=== PATIENT | female | born 1940 | race Caucasian/White ===

== ENCOUNTER → 2017-10-15 | Outpatient (CLI) | payer MEDICARE ==
[~2017-10-15] MED LIST: AMLO10 PO; ASCO500 PO; ASPI325EC PO; ASPI81EC PO; ATOR20 PO; Adult Low Dose81 MG PO; BENA20 PO; BUPR150ER PO; CALCAVITDA PO; CLON.2 PO; Dyazide 37.5-21 EACH PO; FLUO20 PO; FURO40 PO; GEMF600 PO; HYDCHL25 PO; LABE200 PO; LEVO750 PO; LEVSOD125 PO; METO25ER PO; NITR.4SL SL; POTA10T PO; POTCHL20ER PO; Prinivil10 MG PO; Prozac20 MG PO; VITAMIN D3 PO; XARELTO15 MG PO
[2017-10-15 11:13] LABS: Anion Gap 9 mmol/L (6-16); Blood Urea Nitrogen 15 mg/dL (8-24); Bun/Creatinine Ratio 18.3 (12.0-20.0); CO2, Blood 28 mmol/L (21-32); Calcium, Blood 9.6 mg/dL (8.5-10.1); Chloride, Blood 104 mmol/L (98-108); Creatinine, Blood 0.82 mg/dL (0.40-1.00); Glomerular Filtration Rate >60 (60-); Glucose, Blood 102 mg/dL (70-99); Potassium, Blood 3.4 mmol/L (3.5-5.5); Sodium, Blood 141 mmol/L (136-145)
== END ==
LOC: LAB 10:39
PROVIDERS: Internal Medicine
DX: I10 Essential (primary) hypertension (principal)
CPT/HCPCS: 80048

== ENCOUNTER 2018-02-15 15:18 | Inpatient (IN) | payer MEDICARE ==
[~2018-02-15] VITALS: Ht 162.6 cm; Wt 66.6 kg
[~2018-02-15 15:18] MED LIST changes: -CLON.2 PO; -Dyazide 37.5-21 EACH PO; -FURO40 PO; -LABE200 PO; -LEVO750 PO; -XARELTO15 MG PO
[2018-02-15 16:14] LABS: BASOPHILS ABSOLUTE AUTO 0.06 K/mm3 (0.00-0.23); BASOPHILS PERCENT AUTO 0 % (0-2); EOSINOPHILS ABSOLUTE AUTO 0.01 K/mm3 (0.00-0.68); EOSINOPHILS PERCENT AUTO 0 % (0-6); Hematocrit 48.2 % (33.0-51.0); Hemoglobin 16.6 g/dL (11.5-16.0); IMMATURE GRAN ABSOLUTE AUTO 0.07 K/mm3 (0.00-0.10); IMMATURE GRAN PERCENT AUTO 0 % (0-1); LYMPHOCYTES ABSOLUTE AUTO 1.79 K/mm3 (0.84-5.20); LYMPHOCYTES PERCENT AUTO 11 % (21-46); MONOCYTES PERCENT AUTO 4 % (4-13); Mean Corpuscular HGB 31.1 pg (26.0-34.0); Mean Corpuscular HGB Conc 34.4 g/dL (31.5-36.5); Mean Corpuscular Volume 90 fL (80-100); Mean Platelet Volume 11.6 fL (9.1-12.4); NEUTROPHILS ABSOLUTE AUTO 13.45 K/mm3 (1.96-9.15); NEUTROPHILS PERCENT AUTO 84 % (41-73); Platelet Count 310 K/mm3 (150-400); RDW Coefficient Variation 13.7 % (11.7-14.2); RDW Standard Deviation 45.8 fL (35.1-46.3); Red Blood Cell Count 5.34 M/mm3 (3.80-5.20); White Blood Cell Count 15.98 K/mm3 (4.00-11.30)
[2018-02-15 16:36] LABS: Albumin, Blood 4.7 g/dL (3.4-5.0); Albumin/Globulin Ratio 1.4 (0.8-1.8); Bilirubin, Total 0.6 mg/dL (0.1-1.0); Bun/Creatinine Ratio 15.1 (12.0-20.0); Calcium, Blood 11.9 mg/dL (8.5-10.1); Creatinine, Blood 1.26 mg/dL (0.40-1.00); Globulin, Blood 3.3 g/dL (2.2-4.0); Potassium, Blood 3.4 mmol/L (3.5-5.5); Troponin I 0.329 ng/mL (0.000-0.040)
[2018-02-15] MEDS ORDERED: GEMF600 PO (16:39)
[2018-02-15] MEDS ORDERED: CLON.2 PO (16:40)
[2018-02-15] MEDS ORDERED: Dyazide 37.5-21 EACH PO (16:40)
[2018-02-15 17:30] LABS: Free Thyroxine 1.57 ng/dL (0.70-1.60)
[2018-02-15 17:32] LABS: Thyroid Stimulating Hormone 1.81 uIU/mL (0.360-4.800); Triiodothyronine, Free 2.44 pg/mL (2.18-3.98)
[2018-02-15 21:41] LABS: Source, Urine Clean Catch
[2018-02-15 21:46] LABS: Bilirubin, Urine Neg (Neg); Blood, Urine 1+ (Neg); Glucose Qualitative, Urine Neg (Neg); Ketones, Urine Neg (Neg); Leukocyte Esterase, Urine 2+ (Neg); Nitrite, Urine Neg (Neg); Protein, Urine 2+ (Neg); Urobilinogen, Urine NORM (Normal)
[2018-02-15 21:48] LABS: Appearance, Urine Clear (Clear); Color, Urine Yellow (P-Yellow)
[2018-02-15 21:53] LABS: Bacteria Mod /hpf; Red Blood Cells, Urine 0-2 /hpf (0-2); Squamous Epithelial Cells Mod /hpf (Few)
[2018-02-16 00:42] LABS: BASOPHILS ABSOLUTE AUTO 0.02 K/mm3 (0.00-0.23); BASOPHILS PERCENT AUTO 0 % (0-2); EOSINOPHILS PERCENT AUTO 0 % (0-6); Hematocrit 41.1 % (33.0-51.0); IMMATURE GRAN ABSOLUTE AUTO 0.05 K/mm3 (0.00-0.10); IMMATURE GRAN PERCENT AUTO 0 % (0-1); LYMPHOCYTES PERCENT AUTO 14 % (21-46); MONOCYTES ABSOLUTE AUTO 0.74 K/mm3 (0.16-1.47); MONOCYTES PERCENT AUTO 6 % (4-13); Mean Corpuscular HGB Conc 34.1 g/dL (31.5-36.5); Mean Corpuscular Volume 91 fL (80-100); Mean Platelet Volume 10.8 fL (9.1-12.4); NEUTROPHILS ABSOLUTE AUTO 9.97 K/mm3 (1.96-9.15); NEUTROPHILS PERCENT AUTO 80 % (41-73); Platelet Count 259 K/mm3 (150-400); RDW Coefficient Variation 13.9 % (11.7-14.2); RDW Standard Deviation 47.3 fL (35.1-46.3); Red Blood Cell Count 4.51 M/mm3 (3.80-5.20); White Blood Cell Count 12.48 K/mm3 (4.00-11.30)
[2018-02-16 00:58] LABS: Bun/Creatinine Ratio 19.8 (12.0-20.0); Calcium, Blood 10.6 mg/dL (8.5-10.1); Creatinine, Blood 1.11 mg/dL (0.40-1.00); Potassium, Blood 3.4 mmol/L (3.5-5.5)
[2018-02-17 04:46] LABS: BASOPHILS ABSOLUTE AUTO 0.03 K/mm3 (0.00-0.23); BASOPHILS PERCENT AUTO 1 % (0-2); EOSINOPHILS ABSOLUTE AUTO 0.13 K/mm3 (0.00-0.68); EOSINOPHILS PERCENT AUTO 2 % (0-6); Hematocrit 32.4 % (33.0-51.0); Hemoglobin 10.7 g/dL (11.5-16.0); IMMATURE GRAN ABSOLUTE AUTO 0.02 K/mm3 (0.00-0.10); IMMATURE GRAN PERCENT AUTO 0 % (0-1); LYMPHOCYTES ABSOLUTE AUTO 2.62 K/mm3 (0.84-5.20); LYMPHOCYTES PERCENT AUTO 40 % (21-46); MONOCYTES ABSOLUTE AUTO 0.62 K/mm3 (0.16-1.47); MONOCYTES PERCENT AUTO 9 % (4-13); Mean Corpuscular HGB 30.6 pg (26.0-34.0); Mean Corpuscular Volume 93 fL (80-100); Mean Platelet Volume 11.3 fL (9.1-12.4); NEUTROPHILS ABSOLUTE AUTO 3.22 K/mm3 (1.96-9.15); NEUTROPHILS PERCENT AUTO 48 % (41-73); Platelet Count 199 K/mm3 (150-400); RDW Coefficient Variation 14.1 % (11.7-14.2); RDW Standard Deviation 47.9 fL (35.1-46.3); White Blood Cell Count 6.64 K/mm3 (4.00-11.30)
[2018-02-17 05:05] LABS: Anion Gap 10 mmol/L (6-16); Blood Urea Nitrogen 23 mg/dL (8-24); CO2, Blood 23 mmol/L (21-32); Calcium, Blood 9.1 mg/dL (8.5-10.1); Chloride, Blood 111 mmol/L (98-108); Creatinine, Blood 1.15 mg/dL (0.40-1.00); Glomerular Filtration Rate 49 (60-); Glucose, Blood 100 mg/dL (70-99); Potassium, Blood 3.6 mmol/L (3.5-5.5); Sodium, Blood 144 mmol/L (136-145)
[2018-02-18 05:59] LABS: Albumin, Blood 3.2 g/dL (3.4-5.0); Anion Gap 9 mmol/L (6-16); Blood Urea Nitrogen 17 mg/dL (8-24); Bun/Creatinine Ratio 19.7 (12.0-20.0); CO2, Blood 25 mmol/L (21-32); Calcium, Blood 9.4 mg/dL (8.5-10.1); Chloride, Blood 109 mmol/L (98-108); Creatinine, Blood 0.86 mg/dL (0.40-1.00); Glomerular Filtration Rate >60 (60-); Glucose, Blood 100 mg/dL (70-99); Phosphorus, Blood 2.9 mg/dL (2.5-4.9); Sodium, Blood 143 mmol/L (136-145)
[2018-02-18] MEDS ORDERED: FURO40 PO (12:25)
[2018-02-18] MEDS ORDERED: LABE200 PO (12:27)
[2018-02-18] MEDS ORDERED: LEVO750 PO (12:29)
[2018-02-18] MEDS ORDERED: XARELTO15 MG PO (12:29)
== END 2018-02-18 13:11 | disposition home or self-care (01) | DRG 872 ==
LOC: DELPENDDIS → ER 15:18 → MEDS 15:19 → ENPENDDIS 02-16 00:43 → MEDS 02-16 12:47 → ENPENDDIS 02-18 11:28 → MEDS 02-18 13:11
PROVIDERS: Emergency Medicine; Family Medicine
DX: A41.9 Sepsis, unspecified organism (principal); I48.92 Unspecified atrial flutter; N17.9 Acute kidney failure, unspecified; I24.8 Other forms of acute ischemic heart disease; E86.0 Dehydration; I48.0 Paroxysmal atrial fibrillation; R55 Syncope and collapse; I65.29 Occlusion and stenosis of unspecified carotid artery; E83.52 Hypercalcemia; R65.20 Severe sepsis without septic shock; J20.9 Acute bronchitis, unspecified; I10 Essential (primary) hypertension; E89.0 Postprocedural hypothyroidism; G89.29 Other chronic pain; M54.5 Low back pain; F17.210 Nicotine dependence, cigarettes, uncomplicated; E87.6 Hypokalemia; R79.89 Other specified abnormal findings of blood chemistry; D72.829 Elevated white blood cell count, unspecified; R00.0 Tachycardia, unspecified; T46.5X5A Adverse effect of other antihypertensive drugs, initial encounter; Z79.82 Long term (current) use of aspirin; Z79.899 Other long term (current) drug therapy
CPT/HCPCS: 36415; 71046; 71260; 80048; 80053; 80069; 81001; 82306; 83605; 83970; 84439; 84443; 84481; 84484; 85025; 85379; 87086; 93005; 93010; 93306; 93880; 96361; 96365; 96374; 96375; 99285; G0378; J1956; J2405; J3480; J7030; Q9967

== ENCOUNTER → 2019-03-04 | Outpatient (CLI) | payer MEDICARE ==
[~2019-03-04] MED LIST changes: +ALBU90OI INH; +Azor 10-20 MG1 EACH; +Bumetanide1 MG PO; +Bumetanide2 MG PO; +CLON.2 PO; +Calcitonin-Sal3.7 ML; +Dyazide 37.5-21 EACH PO; +ELIQUIS2.5 MG PO; +FURO40 PO; +LABE200 PO; +LEVO750 PO; +LISI20 PO; +LOSA50 PO; +Norvasc10 MG PO; +PANT20 PO; +SPIRIVA RESPIMAT4 GM INH; +VOLTAREN100 GM TOP; +Vitamin D2000 UNIT PO; +XARELTO15 MG PO; +XARELTO20 MG PO
== END | disposition home or self-care (01) ==
LOC: LAB SHORT 16:10 → LAB 16:10
DX: L08.9 Local infection of the skin and subcutaneous tissue, unspecified (principal)
CPT/HCPCS: 87070; 87075; 87077; 87147; 87186; 87205

== ENCOUNTER 2019-04-30 13:50 | Inpatient (IN) | payer MEDICARE ==
[~2019-04-30] VITALS: Ht 157.5 cm; Wt 80.9 kg
[~2019-04-30 13:50] MED LIST changes: -ALBU90OI INH; -Azor 10-20 MG1 EACH; -Bumetanide1 MG PO; -Bumetanide2 MG PO; -Calcitonin-Sal3.7 ML; -ELIQUIS2.5 MG PO; -LISI20 PO; -LOSA50 PO; -Norvasc10 MG PO; -PANT20 PO; -SPIRIVA RESPIMAT4 GM INH; -VOLTAREN100 GM TOP; -Vitamin D2000 UNIT PO; -XARELTO20 MG PO
[2019-04-30 14:41] LABS: BASOPHILS ABSOLUTE AUTO 0.01 K/mm3 (0.00-0.23); BASOPHILS PERCENT AUTO 0 % (0-2); EOSINOPHILS ABSOLUTE AUTO 0.04 K/mm3 (0.00-0.68); EOSINOPHILS PERCENT AUTO 1 % (0-6); Hematocrit 24.6 % (33.0-51.0); IMMATURE GRAN ABSOLUTE AUTO 0.02 K/mm3 (0.00-0.10); IMMATURE GRAN PERCENT AUTO 0 % (0-1); LYMPHOCYTES ABSOLUTE AUTO 1.17 K/mm3 (0.84-5.20); LYMPHOCYTES PERCENT AUTO 22 % (21-46); MONOCYTES ABSOLUTE AUTO 0.43 K/mm3 (0.16-1.47); MONOCYTES PERCENT AUTO 8 % (4-13); Mean Corpuscular HGB 32.5 pg (26.0-34.0); Mean Corpuscular HGB Conc 32.5 g/dL (31.5-36.5); Mean Corpuscular Volume 100 fL (80-100); Mean Platelet Volume 9.8 fL (9.1-12.4); NEUTROPHILS ABSOLUTE AUTO 3.58 K/mm3 (1.96-9.15); NEUTROPHILS PERCENT AUTO 68 % (41-73); Platelet Count 235 K/mm3 (150-400); RDW Coefficient Variation 14.3 % (11.7-14.2); RDW Standard Deviation 51.8 fL (35.1-46.3); Red Blood Cell Count 2.46 M/mm3 (3.80-5.20); White Blood Cell Count 5.25 K/mm3 (4.00-11.30)
[2019-04-30 15:06] LABS: Albumin, Blood 2.8 g/dL (3.4-5.0); Albumin/Globulin Ratio 0.9 (0.8-1.8); Bilirubin, Total 0.3 mg/dL (0.1-1.0); Calcium, Blood 9.9 mg/dL (8.5-10.1); Potassium, Blood 5.1 mmol/L (3.5-5.5); Total Protein, Blood 5.8 g/dL (6.4-8.2)
[2019-04-30 15:11] LABS: Bun/Creatinine Ratio 7.3 (12.0-20.0)
[2019-04-30] MEDS ORDERED: LISI20 PO (15:25)
[2019-04-30] MEDS ORDERED: LABE200 PO (15:25)
[2019-04-30] MEDS ORDERED: GEMF600 PO (15:25)
[2019-04-30] MEDS ORDERED: SPIRIVA RESPIMAT4 GM INH (15:25)
[2019-04-30] MEDS ORDERED: LEVSOD125 PO (15:25)
[2019-04-30] MEDS ORDERED: XARELTO20 MG PO (15:26)
[2019-04-30] MEDS ORDERED: Azor 10-20 MG1 EACH (15:26)
[2019-04-30] MEDS ORDERED: FURO40 PO (15:26)
[2019-04-30] MEDS ORDERED: Prozac20 MG PO (15:26)
[2019-04-30] MEDS ORDERED: ALBU90OI INH (15:27)
[2019-04-30] MEDS ORDERED: VOLTAREN100 GM TOP (15:27)
[2019-04-30] MEDS ORDERED: Vitamin D2000 UNIT PO (15:27)
[2019-04-30] MEDS ORDERED: POTCHL20ER PO (15:27)
[2019-04-30] MEDS ORDERED: Norvasc10 MG PO (15:37)
[2019-04-30] MEDS ORDERED: ELIQUIS2.5 MG PO (15:39)
[2019-04-30] MEDS ORDERED: LOSA50 PO (15:47)
--- NOTE | 2019-04-30 19:31 | NUR ---
SHIFT SUMMARY: PATIENT ADMIT FROM ED THIS SHIFT. PT A&O; CALM AND COOPERATIVE WITH CARE. NO C/O PAIN SINCE ARRIVAL ON MEDICAL. GENERALIZED WEAKNESS; 1-ASSIST TO BSC. NEPHROLOGY CONSULT REQUIRED. REPORT GIVEN TO ONCOMING RN.
[2019-05-01 01:22] LABS: Source, Urine Voided
[2019-05-01 01:35] LABS: Bilirubin, Urine Neg (Neg); Blood, Urine 1+ (Neg); Glucose Qualitative, Urine Neg (Neg); Ketones, Urine Neg (Neg); Leukocyte Esterase, Urine 1+ (Neg); Nitrite, Urine Neg (Neg); Protein, Urine 2+ (Neg); Specific Gravity, Urine 1.005 (1.003-1.022); Urobilinogen, Urine NORM (Normal)
[2019-05-01 01:43] LABS: Sodium, Urine, Random 66 mmol/L (20-110)
[2019-05-01 01:44] LABS: Urea Nitrogen, Urine, Random 167 mg/dL (350-1000)
[2019-05-01 01:47] LABS: Appearance, Urine Clear (Clear); Color, Urine Yellow (P-Yellow)
[2019-05-01 01:50] LABS: Bacteria Few /hpf; Red Blood Cells, Urine 0-2 /hpf (0-2); Squamous Epithelial Cells Few /hpf (Few)
--- NOTE | 2019-05-01 04:23 | NUR ---
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
[2019-05-01 04:46] LABS: BASOPHILS ABSOLUTE AUTO 0.01 K/mm3 (0.00-0.23); BASOPHILS PERCENT AUTO 0 % (0-2); EOSINOPHILS ABSOLUTE AUTO 0.04 K/mm3 (0.00-0.68); EOSINOPHILS PERCENT AUTO 1 % (0-6); Hematocrit 21.5 % (33.0-51.0); Hemoglobin 6.9 g/dL (11.5-16.0); IMMATURE GRAN ABSOLUTE AUTO 0.02 K/mm3 (0.00-0.10); IMMATURE GRAN PERCENT AUTO 0 % (0-1); LYMPHOCYTES PERCENT AUTO 23 % (21-46); MONOCYTES PERCENT AUTO 8 % (4-13); Mean Corpuscular HGB 31.5 pg (26.0-34.0); Mean Corpuscular HGB Conc 32.1 g/dL (31.5-36.5); Mean Corpuscular Volume 98 fL (80-100); Mean Platelet Volume 10.1 fL (9.1-12.4); NEUTROPHILS ABSOLUTE AUTO 3.54 K/mm3 (1.96-9.15); NEUTROPHILS PERCENT AUTO 68 % (41-73); Platelet Count 222 K/mm3 (150-400); RDW Coefficient Variation 14.6 % (11.7-14.2); RDW Standard Deviation 51.8 fL (35.1-46.3); Red Blood Cell Count 2.19 M/mm3 (3.80-5.20); White Blood Cell Count 5.21 K/mm3 (4.00-11.30)
[2019-05-01 05:13] LABS: Magnesium, Blood 1.9 mg/dL (1.6-2.4)
[2019-05-01 05:17] LABS: Albumin, Blood 2.6 g/dL (3.4-5.0); Bilirubin, Total 0.3 mg/dL (0.1-1.0); Bun/Creatinine Ratio 7.5 (12.0-20.0); Calcium, Blood 9.3 mg/dL (8.5-10.1); Creatinine, Blood 7.77 mg/dL (0.40-1.00); Globulin, Blood 2.6 g/dL (2.2-4.0); Phosphorus, Blood 6.9 mg/dL (2.5-4.9); Potassium, Blood 4.7 mmol/L (3.5-5.5); Total Protein, Blood 5.2 g/dL (6.4-8.2)
--- NOTE | 2019-05-01 05:45 | NUR ---
HG 6.9, HCT 21.4; DR WILSON NOTIFIED WITH ORDERS TRANSFUSE ONE UNIT PRBC.
--- NOTE | 2019-05-01 06:36 | NUR ---
0635 PT ADMITTED TO ROOM 312 PER WHEELCHAIR FROM ER, CURRENTLY NPO.
--- NOTE | 2019-05-01 12:59 | NUR ---
PATIENT IS SITTING ON THE SIDE OF HER BED EATING LUNCH. SHE HAD FAMILY AT THE BEDSIDE THIS MORNING. SHE RECIEVED 1 UNIT OF PRBC. COMPLAINS OF RIGHT HAND DISCOMFORT, TREATED WITH AN ICE PACK. PATIENT HAS TRIED TO HAVE A BM TWICE THIS MORNING WITH NO SUCCESS.
--- NOTE | 2019-05-01 17:48 | NUR ---
PATIENT IS ALERT AND ORIENTED AND COOPERATIVE WITH CARE. COMPLAINED OF RIGHT HAND PAIN THAT WAS TREATED WITH AN ICE PACK. SHE RECIEVED 1 UNIT OF PRBC THIS MORNING. 20G IN RAC INFUSING WITH D5W-NS AT 75/HR. SHE IS A SBA TO THE BATHROOM. A STOOL SAMPLE IS NEEDED. HER HAS BEEN AT THE BEDSIDE ALL AFTERNOON ALONG WITH HER SISTER. WILL CONTINUE TO MONITOR.
--- NOTE | 2019-05-01 19:55 | NUR ---
ASSUMED CARE OF THE PATIENT. PATIENT LAYING IN BED, IV SOUNDING, OCCLUTION FROM HER BENDING ELBOW. SHE ALREADY HAD ARM WRAPPED TO PREVENT BUT IT CONTINUES TO OCCLUDE WHEN SHE BENDS HER ARM. RE-WRAPPED HER ARM. HAD HER BEND IT AND MOVE IT AROUND, NO SOUNDING NOTED. ASSESSMENT COMPLETED SEE CHART. NO PAIN NOTED . CALL LIGHT IN REACH, WILL CONTINUE TO MONTIOR.
[2019-05-01 20:49] LABS: Campylobacter Sp Not Detected (NOT DETECT); E. Coli O157 Not Detected (NOT DETECT); Enteroaggregative E. coli-EAEC Not Detected (NOT DETECT); Enteropathogenic E. coli-EPEC Not Detected (NOT DETECT); Enterotoxigenic E. coli-ETEC Not Detected (NOT DETECT); Plesiomonas Shigelloides Not Detected (NOT DETECT); Salmonella Sp Not Detected (NOT DETECT); Shiga Toxin-prod E. coli-STEC Not Detected (NOT DETECT); Shigella/Enteroin E. coli-EIEC Not Detected (NOT DETECT); Vibrio Cholerae Not Detected (NOT DETECT); Vibrio Sp Not Detected (NOT DETECT); Yersinia Enterocolitica Not Detected (NOT DETECT)
[2019-05-01 20:50] LABS: Adenovirus F 40/41 Not Detected (NOT DETECT); Astrovirus Not Detected (NOT DETECT); Cryptosporidium Not Detected (NOT DETECT); Cyclospora Cayetanensis Not Detected (NOT DETECT); Entamoeba Histolytica Not Detected (NOT DETECT); Giardia Lamblia Not Detected (NOT DETECT); Norovirus GI/GII Not Detected (NOT DETECT); Rotavirus A Not Detected (NOT DETECT); Sapovirus Not Detected (NOT DETECT)
[2019-05-02 04:06] LABS: Hematocrit 23.3 % (33.0-51.0); Hemoglobin 7.7 g/dL (11.5-16.0)
[2019-05-02 04:23] LABS: Albumin, Blood 2.5 g/dL (3.4-5.0); Anion Gap 12 mmol/L (6-16); Blood Urea Nitrogen 59 mg/dL (8-24); CO2, Blood 21 mmol/L (21-32); Calcium, Blood 8.7 mg/dL (8.5-10.1); Chloride, Blood 102 mmol/L (98-108); Creatinine, Blood 7.35 mg/dL (0.40-1.00); Glomerular Filtration Rate 6 (60-); Glucose, Blood 105 mg/dL (70-99); Magnesium, Blood 1.7 mg/dL (1.6-2.4); Phosphorus, Blood 6.7 mg/dL (2.5-4.9); Potassium, Blood 4.4 mmol/L (3.5-5.5); Sodium, Blood 135 mmol/L (136-145)
--- NOTE | 2019-05-02 05:19 | NUR ---
SHIFT SUMMARY: BONILLA IS ALERT AND ORIENTED, INDPENDENT IN THE ROOM. VS REMAINED WNL. SHE DENIED ANY PAIN OR DISCOMFORT THIS SHIFT. SOB NOTED ONLY WITH EXERTION, NO OXYGEN IS INDICATED, SHE REMAINED ON RA IN THE 90'S. IV CONTINUED TO INFUSE WITH NO DIFFICULTIES. MEDS WERE ADMINISTERED PER EMAR. CALL LIGHT STAYED WITH IN REACH AND USED APPROPRIATLY. SHE SLEPT WELL THROUGHOUT THE NIGHT. WILL REPORT TO DAY SHIFT RN.
--- NOTE | 2019-05-02 07:47 | NUR ---
THE PATIENT'S OXYGEN SATURATION WAS STEADY AT 84. SHE WAS PLACED ON 1L O2 VIA NC TO INCREASE HER O2 SATS.
[2019-05-02 13:47] LABS: Stool Occult Bld Immuno 1 Positive (NEGATIVE)
--- NOTE | 2019-05-02 18:01 | NUR ---
PATIENT IS ALERT AND ORIENTED AND COOPERATIVE WITH CARE. NO COMPLAINTS THROUGHOUT THE DAY. SHE IS A SBA TO THE BATHROOM. SHE MAKES HER NEEDS KNOWN. HER WAS AT THE BEDSIDE THIS AFTERNOON. WILL CONTINUE TO MONITOR.
--- NOTE | 2019-05-02 19:31 | NUR ---
ASSUMED CARE OF THE PATIENT. PATIENT RESTING IN BED. DENIES ANY PAIN OR DISCOMFORT. ASSESSMENT COMPLETED. CALL LIGHT IN REACH, WILL CONTINUE TO MONITOR.
[2019-05-03 04:02] LABS: Hematocrit 23.2 % (33.0-51.0); Hemoglobin 7.5 g/dL (11.5-16.0)
[2019-05-03 04:20] LABS: Albumin, Blood 2.5 g/dL (3.4-5.0); Anion Gap 11 mmol/L (6-16); Blood Urea Nitrogen 58 mg/dL (8-24); Bun/Creatinine Ratio 8.1 (12.0-20.0); CO2, Blood 20 mmol/L (21-32); Chloride, Blood 104 mmol/L (98-108); Creatinine, Blood 7.17 mg/dL (0.40-1.00); Glomerular Filtration Rate 6 (60-); Glucose, Blood 93 mg/dL (70-99); Magnesium, Blood 1.5 mg/dL (1.6-2.4); Phosphorus, Blood 6.5 mg/dL (2.5-4.9); Potassium, Blood 4.4 mmol/L (3.5-5.5); Sodium, Blood 135 mmol/L (136-145)
--- NOTE | 2019-05-03 05:13 | NUR ---
SHIFT SUMMARY: BONILLA IS A 78 YEAR OLD, INDEPENDENT IN THE ROOM. WHO SLEPT COMFORTABLY ALL NIGHT WITH NO ACUTE CHANGES OR CONCERNS. SHE WAS AWAKE ONLY FOR SHORT PERIODS OF THE NIGHT TO USE THE BATHROOM AND TO TAKE MEDS. SHE IS ABLE TO MOVE ABOUT ON HER OWN IN THE BED AND OUT. CALL LIGHT REMAINED WITH IN HER REACH AND USED APPROPRIATELY. LABS DRAWN THIS AM WITH A H/H OF 7.5/23.2 WHICH IS INCREASED FROM DAY BEFORE. SHE DID HAVE TWO BOWEL MOVMENTS WHICH SHE SAID WERE NORMAL COLOR. NO DIZZINESS OR OTHER SIGNS OF CONCERNS. WILL REPORT TO DAY SHIFT RN.
[2019-05-03 15:07] LABS: A/G RATIO 1.4 (0.7-1.7); ALBUMIN 3.1 g/dL (2.9-4.4); ALPHA-1-GLOBULIN 0.3 g/dL (0.0-0.4); ALPHA-2-GLOBULIN 0.8 g/dL (0.4-1.0); BETA GLOBULIN 0.9 g/dL (0.7-1.3); GAMMA GLOBULIN 0.2 g/dL (0.4-1.8); GLOBULIN, TOTAL 2.2 g/dL (2.2-3.9); M-SPIKE Not Observed g/dL (Not Observed); PROTEIN, TOTAL, SERUM 5.3 g/dL (6.0-8.5)
--- NOTE | 2019-05-03 18:41 | NUR ---
PT. LAYING IN BED AFTER DINNER. PT. RECEIVED 1 UPRBC'S AND 1 MAG RIDER TODAY. NO FURTHER BLOOD IN STOOL NOTED. NO NOTEABLE CHANGES THIS SHIFT.
--- NOTE | 2019-05-03 19:31 | NUR ---
ASSUMED CARE OF THE PATIENT, NO ACUTE CHANGES TODAY. BLOOD WAS ADMINISTERED. SHE STATES SHE DOES NOT FEEL ANY DIFFERENT. TIRED AND FATIQUED. LAYING IN BED RESTING. IV INFUSING NS AT 50ML / HR. CALL LIGHT IN REACH, WILL CONTINUE TO MONITOR.
[2019-05-04 04:57] LABS: Hematocrit 26.4 % (33.0-51.0); Hemoglobin 8.7 g/dL (11.5-16.0)
--- NOTE | 2019-05-04 05:54 | NUR ---
SHIFT SUMMARY: 78 YEAR OLD FEMALE, SLEPT COMFORTABLY ALL NIGHT. SHE WAS UP AND DOWN A FEW TIMES INDEPENDENT IN THE ROOM WITH IV INFUSING TO GO TO THE BATHROOM. SHE HAD ONE EPISODE OF SOB UPON GETTING UP. THIS WAS RELEIVED WITH A BREATHING TREATMENT BY RT. IV CONTINUED TO INFUSE THROUGHOUT THE NIGHT AT 50ML /HR. MEDS GIVEN PER EMAR. CALL LIGHT REMAINED IN REACH AND USED APPROPRIATLY. NO OTHER ACUTE CHANGES THIS SHIFT. WILL REPORT TO DAY SHIFT.
[2019-05-04 06:05] LABS: Albumin, Blood 2.6 g/dL (3.4-5.0); Anion Gap 12 mmol/L (6-16); Blood Urea Nitrogen 59 mg/dL (8-24); Bun/Creatinine Ratio 8.7 (12.0-20.0); CO2, Blood 19 mmol/L (21-32); Calcium, Blood 9.5 mg/dL (8.5-10.1); Chloride, Blood 106 mmol/L (98-108); Creatinine, Blood 6.76 mg/dL (0.40-1.00); Glomerular Filtration Rate 6 (60-); Glucose, Blood 84 mg/dL (70-99); Magnesium, Blood 1.8 mg/dL (1.6-2.4); Phosphorus, Blood 6.6 mg/dL (2.5-4.9); Potassium, Blood 4.3 mmol/L (3.5-5.5); Sodium, Blood 137 mmol/L (136-145)
--- NOTE | 2019-05-04 19:07 | NUR ---
PT. VISITING WITH SPUISEW, NO NOTEABLE CHANGES THIS SHIFT. WHEEZING AND SOB STILL PRESENT BUT PT. REFUSES BREATHING TREATMENTS.
[2019-05-05 04:53] LABS: Hematocrit 26.6 % (33.0-51.0); Hemoglobin 8.6 g/dL (11.5-16.0)
[2019-05-05 05:15] LABS: Albumin, Blood 2.8 g/dL (3.4-5.0); Anion Gap 12 mmol/L (6-16); Blood Urea Nitrogen 55 mg/dL (8-24); Bun/Creatinine Ratio 8.6 (12.0-20.0); CO2, Blood 19 mmol/L (21-32); Calcium, Blood 10.1 mg/dL (8.5-10.1); Chloride, Blood 108 mmol/L (98-108); Creatinine, Blood 6.36 mg/dL (0.40-1.00); Glomerular Filtration Rate 7 (60-); Glucose, Blood 104 mg/dL (70-99); Magnesium, Blood 1.9 mg/dL (1.6-2.4); Potassium, Blood 4.1 mmol/L (3.5-5.5); Sodium, Blood 139 mmol/L (136-145)
--- NOTE | 2019-05-05 06:17 | NUR ---
SHIFT SUMMARY NO ACUTE EVENTS OVERNIGHT. PATIENT BECAME SHOB WITH EXERTION. LUNG SOUNDS DISPERSE EXPIRATORY WHEEZES. WILL CONTINUE TO MONITOR AND REPORT TO ON COMING NURSE
--- NOTE | 2019-05-05 14:09 | NUR ---
SHIFT SUMMARY PT RESTING QUIETLY FOR A WHILE AFTER START OF SHIFT. EVENTUALLY WOKE UP ENOUGH TO EAT BREAKFAST. SBA TO BTHRM TO VOID. PT ON 2L NC, BUT REMOVED TO GO INTO BTHRM. NO C/O DYSPNEA TO PRESENT. PT ADMITTED FOR N/V/D, BUT DENIED ANY PROBLEMS TODAY. GFR 7 AND CREATININE 6.36, BUT PT REPORTED NO PROBLEMS WITH HER KIDNEYS PREVIOUSLY. PER SHIFT REPORT, PT HAS ACUTE ON CKD. PT REPORTED THAT SHE JUST GOT DEHYDRATED; IVF'S INFUSING PER EMAR. PT IN CONTACT ISO FOR HX MRSA. DR RAJAN IN TO SEE PT EARLIER WELL VISITORS. CALL LT IN REACH. ABLE TO MAKE NEEDS KNOWN.
--- NOTE | 2019-05-06 04:36 | NUR ---
pt continues on IV fluid NS at 50 ml hr for acute on chronic renal failure/ dehydration after NVD. Very poor appetite ate less than 5% dinner, refused alternative or supplements. Denies nausea, no bowel movements. SOB with exertion, oxygen 2 l NC to keep sats greater than 90%. Denies pain.
[2019-05-06 04:42] LABS: BASOPHILS ABSOLUTE AUTO 0.02 K/mm3 (0.00-0.23); BASOPHILS PERCENT AUTO 0 % (0-2); EOSINOPHILS ABSOLUTE AUTO 0.06 K/mm3 (0.00-0.68); EOSINOPHILS PERCENT AUTO 1 % (0-6); Hematocrit 25.9 % (33.0-51.0); Hemoglobin 8.3 g/dL (11.5-16.0); IMMATURE GRAN ABSOLUTE AUTO 0.03 K/mm3 (0.00-0.10); IMMATURE GRAN PERCENT AUTO 1 % (0-1); LYMPHOCYTES ABSOLUTE AUTO 1.42 K/mm3 (0.84-5.20); LYMPHOCYTES PERCENT AUTO 22 % (21-46); MONOCYTES ABSOLUTE AUTO 0.57 K/mm3 (0.16-1.47); MONOCYTES PERCENT AUTO 9 % (4-13); Mean Corpuscular Volume 100 fL (80-100); Mean Platelet Volume 9.9 fL (9.1-12.4); NEUTROPHILS ABSOLUTE AUTO 4.23 K/mm3 (1.96-9.15); NEUTROPHILS PERCENT AUTO 67 % (41-73); Platelet Count 216 K/mm3 (150-400); RDW Coefficient Variation 15.5 % (11.7-14.2); RDW Standard Deviation 57.3 fL (35.1-46.3); Red Blood Cell Count 2.59 M/mm3 (3.80-5.20); White Blood Cell Count 6.33 K/mm3 (4.00-11.30)
[2019-05-06 05:00] LABS: Albumin, Blood 2.7 g/dL (3.4-5.0); Anion Gap 11 mmol/L (6-16); Blood Urea Nitrogen 59 mg/dL (8-24); Bun/Creatinine Ratio 10.6 (12.0-20.0); CO2, Blood 19 mmol/L (21-32); Calcium, Blood 9.9 mg/dL (8.5-10.1); Chloride, Blood 110 mmol/L (98-108); Creatinine, Blood 5.54 mg/dL (0.40-1.00); Glomerular Filtration Rate 8 (60-); Glucose, Blood 90 mg/dL (70-99); Magnesium, Blood 1.8 mg/dL (1.6-2.4); Phosphorus, Blood 5.7 mg/dL (2.5-4.9); Potassium, Blood 3.6 mmol/L (3.5-5.5); Sodium, Blood 140 mmol/L (136-145)
[2019-05-06 12:23] LABS: Percent Saturation 20.2 % (15.0-50.0)
--- NOTE | 2019-05-06 17:57 | NUR ---
PT SITTING UP AT BEDSIDE SOB AT REST, SATS 94% ON RA BUT PT REPORTS SHE FEELS BETTER WITH THE 02 ON, PLACED ON 2L. BP OF 151/98, HR 128. PT SOUNDS IRREG WHEN LISTENING. SPOKE WITH DR RAJAN WHO ORDERED ONE TIME DOSE OF LASIX 20MG IV. PT WITH ONLY 400ML URINE OUTPUT TODAY. WILL CONT TO MONITOR.
--- NOTE | 2019-05-06 17:58 | NUR ---
SHIFT SUMMARY- PT A/OX4, INDEP UP TO BSC. PT DENIES ANY COMPLAINTS T/O THE DAY. LS DIMINISHED WITH CRACKLES IN THE BASES, PT ON RA T/O MOST OF THE DAY AND PLACED ON 02 AT 2L THIS EVENING FOR SOB PER PT REQUEST, SATS 94% ON RA. HR IRREG. 1+ BLE. INCREASED SOB WITH EXERTION. PT WITH ONLY 400ML URINE OUTPUT THIS SHIFT. POOR APETITE BUT PT REPORTS IMPROVING. NEED GUAIAC BUT NO BM'S TODAY. IV LASIX X1 TO BE GIVEN. NO OTHER ACUTE CHANGES THIS SHIFT.
[2019-05-07 04:50] LABS: Hemoglobin 8.1 g/dL (11.5-16.0)
[2019-05-07 05:14] LABS: Albumin, Blood 2.6 g/dL (3.4-5.0); Anion Gap 8 mmol/L (6-16); Blood Urea Nitrogen 57 mg/dL (8-24); Bun/Creatinine Ratio 12.4 (12.0-20.0); CO2, Blood 25 mmol/L (21-32); Calcium, Blood 9.7 mg/dL (8.5-10.1); Chloride, Blood 107 mmol/L (98-108); Glomerular Filtration Rate 10 (60-); Glucose, Blood 111 mg/dL (70-99); Magnesium, Blood 1.6 mg/dL (1.6-2.4); Phosphorus, Blood 4.4 mg/dL (2.5-4.9); Potassium, Blood 3.3 mmol/L (3.5-5.5); Sodium, Blood 140 mmol/L (136-145)
--- NOTE | 2019-05-07 05:37 | NUR ---
SHIFT SUMMARY NO ACUTE EVENTS OVERNIGHT. PATIENT STATED SHE FELT THAT HER SHORTNESS OF BREATH WAS MOSTLY RESOLVED. CONTINUED TO WEAR O2 FOR COMFORT. UP AD LEATHA TO BSC. WILL CONTINUE TO MONITOR AND REPORT TO ON COMING RN.
--- NOTE | 2019-05-07 17:07 | NUR ---
PT IS A/OX3, PLEASANT AND COOPERATIVE, THE PT IS UP IND IN HER ROOM, THE PT APPEARS TO BE BREATING EASILY AT REST ON O2@ 2L/MIN, THE PT BECOMES SOB WITH ACTIVITY , THE PT DENIED ANY PAIN, OR N/V SO FAR THIS SHIFT, PTS CALL LIGHT IN REACH, PT HAS BEEN UP IND TO THE BSC
[2019-05-08 04:43] LABS: Hematocrit 25.3 % (33.0-51.0); Hemoglobin 8.3 g/dL (11.5-16.0)
--- NOTE | 2019-05-08 05:01 | NUR ---
SHIFT SUMMARY NO ACUTE CHANGES OVERNIGHT. PT HAS RESTED COMFORTABLY T/O THE SHIFT, SHE HAS DENIED NEEDS. DENIES PAIN. NO N/V THIS SHIFT. IVF INFUSING ORDERED. BP HAS TRENDED DOWN FROM DAYSHIFT READINGS. SHE RECEIVED PO LABATELOL HS. ASSESSMENT HAS REMAINED UNCHANGED. WILL CONTINUE TO MONITOR AND REPORT TO ONCOMING RN.
[2019-05-08 05:04] LABS: Albumin, Blood 2.6 g/dL (3.4-5.0); Anion Gap 8 mmol/L (6-16); Blood Urea Nitrogen 49 mg/dL (8-24); Bun/Creatinine Ratio 13.4 (12.0-20.0); CO2, Blood 26 mmol/L (21-32); Calcium, Blood 9.8 mg/dL (8.5-10.1); Chloride, Blood 103 mmol/L (98-108); Creatinine, Blood 3.65 mg/dL (0.40-1.00); Glomerular Filtration Rate 13 (60-); Glucose, Blood 102 mg/dL (70-99); Magnesium, Blood 1.5 mg/dL (1.6-2.4); Phosphorus, Blood 3.7 mg/dL (2.5-4.9); Potassium, Blood 3.4 mmol/L (3.5-5.5); Sodium, Blood 137 mmol/L (136-145)
[2019-05-08 13:55] LABS: Stool Occult Bld Immuno 1 Positive (NEGATIVE)
--- NOTE | 2019-05-08 16:20 | NUR ---
TALKED TO ABOUT MAG SULFATE IV ORDERED FOR 1600. PER CANCEL.
--- NOTE | 2019-05-08 17:47 | NUR ---
ALERT. ORIENTED. DENIES N/V/D. DENIES PAIN. ON 2 LPM OXYGEN. USES BSC ON OWN. IV PATENT. MAINTENANCE FLUIDS STOPPED THIS A.M. PER . INTERMITTENT SOB W/MOVEMENT. LUNGS CLEAR TO DIM T/O. BED IN LOW POSITION. CALL LIGHT WITHIN REACH. [facility]
--- NOTE | 2019-05-09 04:14 | NUR ---
HAS BEEN RESTING WITH OCCASIONAL WHEEZING. CONTINUES WITH . O2 PER NC AND HOB ELEVATED. DENIED PAIN WHEN ASKED. CURRENTLY SLEEPING.
[2019-05-09 05:05] LABS: BASOPHILS ABSOLUTE AUTO 0.02 K/mm3 (0.00-0.23); BASOPHILS PERCENT AUTO 0 % (0-2); EOSINOPHILS ABSOLUTE AUTO 0.07 K/mm3 (0.00-0.68); EOSINOPHILS PERCENT AUTO 1 % (0-6); Hematocrit 26.9 % (33.0-51.0); Hemoglobin 8.6 g/dL (11.5-16.0); IMMATURE GRAN ABSOLUTE AUTO 0.01 K/mm3 (0.00-0.10); IMMATURE GRAN PERCENT AUTO 0 % (0-1); LYMPHOCYTES ABSOLUTE AUTO 1.51 K/mm3 (0.84-5.20); LYMPHOCYTES PERCENT AUTO 27 % (21-46); MONOCYTES ABSOLUTE AUTO 0.56 K/mm3 (0.16-1.47); MONOCYTES PERCENT AUTO 10 % (4-13); Mean Corpuscular HGB 31.2 pg (26.0-34.0); Mean Corpuscular Volume 98 fL (80-100); NEUTROPHILS ABSOLUTE AUTO 3.36 K/mm3 (1.96-9.15); NEUTROPHILS PERCENT AUTO 61 % (41-73); Platelet Count 207 K/mm3 (150-400); RDW Standard Deviation 53.1 fL (35.1-46.3); Red Blood Cell Count 2.76 M/mm3 (3.80-5.20); White Blood Cell Count 5.53 K/mm3 (4.00-11.30)
[2019-05-09 05:27] LABS: Albumin, Blood 2.7 g/dL (3.4-5.0); Anion Gap 9 mmol/L (6-16); Blood Urea Nitrogen 46 mg/dL (8-24); CO2, Blood 27 mmol/L (21-32); Calcium, Blood 10.1 mg/dL (8.5-10.1); Chloride, Blood 102 mmol/L (98-108); Creatinine, Blood 3.28 mg/dL (0.40-1.00); Glomerular Filtration Rate 15 (60-); Glucose, Blood 89 mg/dL (70-99); Magnesium, Blood 1.8 mg/dL (1.6-2.4); Phosphorus, Blood 3.7 mg/dL (2.5-4.9); Potassium, Blood 3.5 mmol/L (3.5-5.5); Sodium, Blood 138 mmol/L (136-145)
--- NOTE | 2019-05-09 07:00 | NUR ---
PER ONE TIME IV DOSE LASIX 20 MG.
--- NOTE | 2019-05-09 18:52 | NUR ---
ALERT. ORIENTED. AMBULATED IN HALLWAY W/1 PERSON ASSIST ON OXYGEN. IV PATENT. UNLABORED RESPIRATIONS. SPEAKS IN COMPLETE SENTENCES. NO TELE. BED IN LOW POSITION. COOPERATIVE. PLEASANT. WCTM.
[2019-05-10 01:06] LABS: Stool Occult Blood Guaiac 1 Pos (Neg)
--- NOTE | 2019-05-10 05:40 | NUR ---
CHILD NUTRITION ASSISTANT SUMMARY NO ACUTE CHANGES THIS SHIFT. PT AAOX4 AND INDEPENDENT TO BSC. LUNGS IMPROVED AND PT REPORTS IMPROVED BREATHING. DENIES PAIN, N/V. DOES STILL GET MILDLY SOB WITH EXERTION. REPEAT STOOL GUAIAC WAS POSITIVE. PT POSSIBLE DC LATER TODAY. VSS, WILL CONTINUE TO MONITOR.
[2019-05-10 06:02] LABS: Albumin, Blood 2.6 g/dL (3.4-5.0); Anion Gap 8 mmol/L (6-16); Blood Urea Nitrogen 45 mg/dL (8-24); Bun/Creatinine Ratio 15.4 (12.0-20.0); CO2, Blood 28 mmol/L (21-32); Calcium, Blood 9.8 mg/dL (8.5-10.1); Chloride, Blood 101 mmol/L (98-108); Creatinine, Blood 2.93 mg/dL (0.40-1.00); Glomerular Filtration Rate 17 (60-); Glucose, Blood 96 mg/dL (70-99); Magnesium, Blood 1.7 mg/dL (1.6-2.4); Phosphorus, Blood 3.4 mg/dL (2.5-4.9); Potassium, Blood 3.2 mmol/L (3.5-5.5); Sodium, Blood 137 mmol/L (136-145)
--- NOTE | 2019-05-10 17:40 | NUR ---
SHIFT SUMMARY PT HAS HAD NO COMPLAINTS THIS SHIFT. PT HAS SLEPT A LOT OF THE AFTERNOON. NO ACUTE CHANGES THIS SHIFT. CALL LIGHT IN REACH. WILL CONTINUE TO MONITOR AND REPORT TO ONCOMING RN.
--- NOTE | 2019-05-11 04:06 | NUR ---
SHIFT SUMMARY PT ADMITTED FOR ACUTE GASTROENTERITIS. FULL CODE. RENAL DIET. CONTACT ISOLATION FOR MRSA IN NARES. HGB OF 7.8, NO ORDER TO TRANSFUSE OF YET SO FAR THIS SHIFT. DR. MARION FOLLOWING PT. PT RECIEVING IRON FOR CHRONIC ANEMIA. 2L O2 VIA NC, WHICH IS NOT PTS BASELINE, NO OXYGEN AT HOME PRIOR. 20 G IV TO R AC. PT STOOL SENT TO LAB AND WAS GUIAC POSITIVE SO ELIQUID WAS DC. PT IS INDEPENDENT WITH TRANSFERS TO THE BEDSIDE COMMODE BUT REQUIRES 1 ASSIST FOR AMBULATION LONG DISTANCES DUE TO SOB WITH ACTIVITY. TAKES MEDICATIONS WHOLE. PT IS NOTED TO HAVE INTERMITTENT FORGETFULNESS. PT HAS BEEN A BIT RESTLESS SO FAR THIS SHIFT AND UP AT BEDSIDE PERIODICALLY. PT APPEARES TO BE SLEEPING COMFORTABLY AT THIS TIME WITH NO APPARENT SIGNS OF ACUTE DISTRESS. FREQUENT VISUAL CHECKS PT DOES NOT OFTEN ASK FOR ASSISTANCE WHEN NEEDED. PT IS ABLE TO MAKE NEEDS KNOWN BUT DOES NOT WANT TO BOTHER ANYONE. OFFERING ASSISTANCE FREQUENTLY WHILE AWAKE IS BEST RESULTS FOR PROVIDING ADEQUATE CARE.
[2019-05-11 05:01] LABS: Hematocrit 24.6 % (33.0-51.0); Hemoglobin 7.8 g/dL (11.5-16.0)
[2019-05-11 05:33] LABS: Albumin, Blood 2.6 g/dL (3.4-5.0); Anion Gap 6 mmol/L (6-16); Blood Urea Nitrogen 45 mg/dL (8-24); CO2, Blood 28 mmol/L (21-32); Calcium, Blood 9.8 mg/dL (8.5-10.1); Chloride, Blood 102 mmol/L (98-108); Creatinine, Blood 2.82 mg/dL (0.40-1.00); Glomerular Filtration Rate 17 (60-); Glucose, Blood 101 mg/dL (70-99); Magnesium, Blood 1.7 mg/dL (1.6-2.4); Phosphorus, Blood 3.2 mg/dL (2.5-4.9); Potassium, Blood 3.5 mmol/L (3.5-5.5); Sodium, Blood 136 mmol/L (136-145)
--- NOTE | 2019-05-11 07:51 | NUR ---
I FIND HER SOB AT REST AND IRREGULAR AND TACHY. NO CP. O2 2L. NO OTHER PAINS. NO C/O DIZZINESS. BP STABLE. I NOTIFIED OF HER PULSE AND BP AND ASKED FOR HER LABETOLOL DOSE. HE WANTS 1/2 DOSE BID INSTEAD OF WHOLE DOSE DAILY.
[2019-05-11 14:04] LABS: Magnesium, Blood 1.6 mg/dL (1.6-2.4); Potassium, Blood 3.4 mmol/L (3.5-5.5)
--- NOTE | 2019-05-11 14:39 | NUR ---
SHE HAS RECEIVED A UNIT OF PRBC'S. O2 2L NC. LESS SOB THAN EARLY THIS MORNING AND HEART RATE HOVERS AT 100 BTS/MIN. TELE ON, AFIB. SHE FEELS BETTER THAN THIS MORNING. VSS. HAD VISITORS.
--- NOTE | 2019-05-11 16:03 | NUR ---
IV MAGNESIUM GIVEN. KCL STARTED. SHE HAS HAD A FEW VISITORS TODAY. SHE HAS MORE SOB WITH ANY MOVEMENT. SHE HAD A HARD DARK BROWN BM. SHE VOIDS MODERATE AMTS.
--- NOTE | 2019-05-11 18:20 | NUR ---
SHE RECEIVED 1 UNIT OF PRBC'S TODAY, ONE DOSE OF IV LASIX, AND A DOSE EACH OF KCL AND MAGNESIUM IV. MODERATE DIURESIS. NO COMPLAINTS. NO SIGNS OF BLEEDING.
[2019-05-12 04:34] LABS: Hematocrit 27.5 % (33.0-51.0); Hemoglobin 8.7 g/dL (11.5-16.0)
[2019-05-12 04:51] LABS: Albumin, Blood 2.9 g/dL (3.4-5.0); Anion Gap 6 mmol/L (6-16); Blood Urea Nitrogen 41 mg/dL (8-24); Bun/Creatinine Ratio 15.5 (12.0-20.0); CO2, Blood 29 mmol/L (21-32); Calcium, Blood 10.1 mg/dL (8.5-10.1); Chloride, Blood 102 mmol/L (98-108); Creatinine, Blood 2.64 mg/dL (0.40-1.00); Glomerular Filtration Rate 19 (60-); Glucose, Blood 103 mg/dL (70-99); Magnesium, Blood 1.6 mg/dL (1.6-2.4); Potassium, Blood 3.5 mmol/L (3.5-5.5); Sodium, Blood 137 mmol/L (136-145)
--- NOTE | 2019-05-12 07:33 | NUR ---
Patient with increasing SOB overnight. more comfortable sitting up and dangling feet over side of bed. tele A Fib RVR 110-130's most of night. rates increased to 150-160 around 0500 and patient lung sounds with bilateral rales and wheezes. MD notified. patient unable to tolerate laying on stretcher for PA and lateral chest xray, so portable one view completed in room. RT delivered breathing treatment and early AM po medications held for SOB. BP 180's after returning to bed from [facility]. 160's after 10 minutes. AM hospitalist informed of CXR. new orders given for IV lasix to decrease work of breathing and HTN. oncoming RN informed of overnight changes in patient and status.
--- NOTE | 2019-05-12 12:09 | NUR ---
SHE HAS BEEN SLEEPING IN BED WITH HOB UP 60 DEGREES AND LEGS OUT STRAIGHT. THIS IS AFTER BEING UP IN THE CHAIR AT THE BEDSIDE FOR A FEW HRS THIS MORNING. AT THE END OF COFFEE SUPERVISOR SHE WAS VERY DYSPNEIC, REQUIRING RT ASSESSMENT, NEB AND PCXR. I FOLLOWED WITH IV LASIX. SHE HAS VOIDED 425 IN 1 SITTING. O2 WAS LOWERED TO 3L INSTEAD OF 4L WHEN I GAVE HER THE LASIX. I JUST NOW LOWERED HER TO 2L. I SPOT CHECKED HER BIOX WHILE SLEEPING. IT WAS 98% ON 3L. SHE REMAINS PALE, A&O, AND WEAK. SHE DENIES DIFFICULTY BUT STILL LOSES HER BREATH SPEAKING. SHE IS CALM, SOMEWHAT WITHDRAWN, BUT VERY PLEASANT AND GRATEFUL FOR HER CARE. TELE AFIB BETWEEN 110 AND 120. NO VISITORS YET TODAY.
--- NOTE | 2019-05-12 12:56 | NUR ---
SHE HAD ANOTHER HARD STOOL TODAY. TODAY I NOTED A LITTLE BLOOD ON THE OUTSIDE OF THE STOOL. I NOTIFIED . HE WILL ORDER A STOOL SOFTNER AND CONFIRMS THAT PATIENT WANTS TO F/U WITH OUTPT AND CONTINUE TO HOLD HER ELIQUIS.
--- NOTE | 2019-05-12 14:36 | NUR ---
SHE WAS ABLE TO WORK IN THE ROOM WITH PT. O2 2L. NO OTHER CHANGES.
--- NOTE | 2019-05-12 18:17 | NUR ---
SHE HAS BEEN ON 2L NC MOST OF THE SHIFT BUT IS ON 3L NOW. AFTER HER EARLY AM DYSPNEIC EPISODE SHE BREATHED BETTER ALL DAY UNTIL ABOUT 30 MIN AGO. SHE SAT UP. I TURNED HER O2 UP TO 4L AND SHE HAD A NEB TREATMENT. SHE SAID SHE TRIED TO MOVE AROUND TO OPEN HER DINNER TRAY AND GOT TOO SOB TO DO ANYTHING. BIOX WAS IN THE MID 90'S THE WHOLE TIME. SHE FELT BETTER ENOUGH AFTER THE NEB TX TO TRY AND EAT DINNER. SHE IS SITTING ON THE SIDE OF THE BED. BOWEL CARE MAINTENENCE WILL START AT HS. TELE STILL AFIB NEAR 114 MOST OF THE TIME. HER ECHO WAS DONE AT BEDSIDE THIS AFTERNOON.
[2019-05-13 04:51] LABS: Hematocrit 27.9 % (33.0-51.0)
[2019-05-13 05:10] LABS: Albumin, Blood 2.9 g/dL (3.4-5.0); Anion Gap 6 mmol/L (6-16); Blood Urea Nitrogen 40 mg/dL (8-24); CO2, Blood 30 mmol/L (21-32); Calcium, Blood 10.5 mg/dL (8.5-10.1); Chloride, Blood 101 mmol/L (98-108); Glomerular Filtration Rate 20 (60-); Glucose, Blood 106 mg/dL (70-99); Magnesium, Blood 1.6 mg/dL (1.6-2.4); Phosphorus, Blood 2.6 mg/dL (2.5-4.9); Potassium, Blood 3.2 mmol/L (3.5-5.5); Sodium, Blood 137 mmol/L (136-145)
--- NOTE | 2019-05-13 06:34 | NUR ---
PT HAVING SOME FLUID RETENTION EVIDENCED BY CRACKLES HEARD BY THE RT DURING ROUNDS. MD NOTIFIED AND LASIX ORDERED AND GIVEN ORDERED - SEE MAR FOR DETAILS. ALSO AT THE END OF SHIFT, LABS NOTED LOW POTASSIUM LEVELS. MD ORDERED 40 MEQ OF POTASSIUM AND IS CURRENTLY INFUSING. SEE MAR FOR DETAILS. ALERT AND ORIENTED. AFFECT CHEERFUL.
--- NOTE | 2019-05-13 16:34 | NUR ---
SHIFT SUMMARY PT HR REMAINS ELEVATED, BUT TRENDING DOWN. PT RUNNING AT 90-110S. OTHER VITALS STABLE. PT CONTINUES TO USE 2L O2 VIA NC. NO OTHER CHANGES IN ASSESSMENT AT THIS TIME. WILL CONTINUE TO MONITOR UNTIL TURNOVER IS COMPLETE.
--- NOTE | 2019-05-14 04:17 | NUR ---
AT SHIFT START, AFFECT AND RESPS WNL, LATER STARTED TO DISPLAY WHEEZES. DR MARION VISITED, ORDERS RECEIVED FOR LASIX AND POTASSIUM - SEE MAR FOR DETAILS. MEDS EFFECTIVE, RESTING QUIETLY AT LAST ROUNDING.
[2019-05-14 05:04] LABS: Hematocrit 27.6 % (33.0-51.0); Hemoglobin 8.7 g/dL (11.5-16.0)
[2019-05-14 05:22] LABS: Albumin, Blood 2.9 g/dL (3.4-5.0); Anion Gap 6 mmol/L (6-16); Blood Urea Nitrogen 37 mg/dL (8-24); Bun/Creatinine Ratio 15.9 (12.0-20.0); CO2, Blood 29 mmol/L (21-32); Calcium, Blood 10.2 mg/dL (8.5-10.1); Chloride, Blood 102 mmol/L (98-108); Creatinine, Blood 2.32 mg/dL (0.40-1.00); Glomerular Filtration Rate 22 (60-); Glucose, Blood 108 mg/dL (70-99); Magnesium, Blood 1.6 mg/dL (1.6-2.4); Phosphorus, Blood 2.7 mg/dL (2.5-4.9); Potassium, Blood 3.3 mmol/L (3.5-5.5); Sodium, Blood 137 mmol/L (136-145)
--- NOTE | 2019-05-14 16:24 | NUR ---
SHIFT SUMMARY NO CHANGES IN ASSESSMENT AT THIS TIME. VSS. PT RECIEVING DAILY LASIX & POTASSIUM. PT GIVEN 1 BAG KCL THIS SHIFT. TOELRATED WELL. PT RESTING IN BED. CALL LIGHT IN REACH. PT DENIED NEED FOR PAIN MEDS THIS SHIFT. WILL CONTINUE TO MONITOR UNTIL TURNOVER IS COMPLETE.
--- NOTE | 2019-05-15 03:53 | NUR ---
SHIFT SUMMARY PATIENT HAD NO ACUTE CHANGES OBSERVED THIS SHIFT. AXOX 3 AND INDEPENDENT TO BSC. PIV REMAINS INTACT. CHUCK SPLITTER REPORTS A-FIB AVERAGING 78. VSS/AFBERILE. ON 2L O2 BASELINE. DENIES PAIN, SOB, AND N/V. COOPERATIVE WITH CARE. CALL LIGHT IN REACH. BED IN LOWEST POSITION. WILL CONTINUE TO MONITOR UNTIL DAY SHIFT NURSE ASSUMES CARE.
[2019-05-15 04:35] LABS: Hematocrit 26.9 % (33.0-51.0); Hemoglobin 8.7 g/dL (11.5-16.0)
[2019-05-15 04:55] LABS: Albumin, Blood 2.9 g/dL (3.4-5.0); Anion Gap 6 mmol/L (6-16); Blood Urea Nitrogen 33 mg/dL (8-24); Bun/Creatinine Ratio 15.6 (12.0-20.0); CO2, Blood 31 mmol/L (21-32); Calcium, Blood 10.4 mg/dL (8.5-10.1); Chloride, Blood 102 mmol/L (98-108); Creatinine, Blood 2.12 mg/dL (0.40-1.00); Glomerular Filtration Rate 24 (60-); Glucose, Blood 104 mg/dL (70-99); Magnesium, Blood 1.7 mg/dL (1.6-2.4); Phosphorus, Blood 2.8 mg/dL (2.5-4.9); Potassium, Blood 3.3 mmol/L (3.5-5.5); Sodium, Blood 139 mmol/L (136-145)
[2019-05-15] MEDS ORDERED: PANT20 PO (17:09)
--- NOTE | 2019-05-15 17:21 | NUR ---
DISCHARGE INSTRUCTIONS VERBALIZED AND PATIENT GIVEN A WRITTEN COPY FOR REFERENCE. TELE MONITOR AND IV REMOVED. ALL QUESTIONS ANSWERED. PATIENT IN ROOM AWAITING FOR TRANSPORT HOME.
== END 2019-05-15 18:33 | disposition home or self-care (01) | DRG 682 ==
LOC: ER 13:50 → MEDS 16:49
PROVIDERS: Internal Medicine; Internal Medicine Nephrology; Physician Assistant; ADMIT Internal Medicine
PROC: 30233N1 Transfusion of Nonautologous Red Blood Cells into Peripheral Vein, Percutaneous Approach (ICD-10-PCS; principal; 2019-05-01)
DX: N17.0 Acute kidney failure with tubular necrosis (principal); J96.01 Acute respiratory failure with hypoxia; I50.33 Acute on chronic diastolic (congestive) heart failure; A08.39 Other viral enteritis; E87.2 Acidosis; I48.92 Unspecified atrial flutter; I13.0 Hypertensive heart and chronic kidney disease with heart failure and stage 1 through stage 4 chronic kidney disease, or unspecified chronic kidney disease; E03.9 Hypothyroidism, unspecified; J44.9 Chronic obstructive pulmonary disease, unspecified; E78.5 Hyperlipidemia, unspecified; E87.5 Hyperkalemia; E88.09 Other disorders of plasma-protein metabolism, not elsewhere classified; E86.9 Volume depletion, unspecified; D63.1 Anemia in chronic kidney disease; E83.42 Hypomagnesemia; I48.0 Paroxysmal atrial fibrillation; N18.9 Chronic kidney disease, unspecified
CPT/HCPCS: 0097U; 36415; 36430; 71045; 71046; 76770; 80053; 80069; 81001; 82270; 82274; 82330; 82550; 82728; 83540; 83550; 83690; 83735; 83880; 84100; 84132; 84165; 84300; 84540; 85014; 85018; 85025; 86335; 86850; 86900; 86901; 86923; 87081; 93306; 94640; 94760; 94761; 96361; 96365; 96375; 97110; 97116; 97162; 97530; 99284-25; C9113; J0881; J1940; J2405; J2916; J3475; J3480; J7030; J7040; J7042; J7070; P9016

== ENCOUNTER → 2019-05-19 | Outpatient (CLI) | payer MEDICARE ==
[~2019-05-19] MED LIST changes: +ALBU90OI INH; +Azor 10-20 MG1 EACH; +Bumetanide1 MG PO; +Bumetanide2 MG PO; +Calcitonin-Sal3.7 ML; +ELIQUIS2.5 MG PO; +LISI20 PO; +LOSA50 PO; +Norvasc10 MG PO; +PANT20 PO; +SPIRIVA RESPIMAT4 GM INH; +VOLTAREN100 GM TOP; +Vitamin D2000 UNIT PO; +XARELTO20 MG PO
[2019-05-19 17:02] LABS: Albumin, Blood 3.4 g/dL (3.4-5.0); Anion Gap 8 mmol/L (6-16); Blood Urea Nitrogen 22 mg/dL (8-24); Bun/Creatinine Ratio 11.1 (12.0-20.0); CO2, Blood 30 mmol/L (21-32); Chloride, Blood 104 mmol/L (98-108); Creatinine, Blood 1.99 mg/dL (0.40-1.00); Glomerular Filtration Rate 24 (60-); Glucose, Blood 97 mg/dL (70-99); Phosphorus, Blood 2.9 mg/dL (2.5-4.9); Potassium, Blood 3.8 mmol/L (3.5-5.5); Sodium, Blood 142 mmol/L (136-145)
[2019-05-19 18:08] LABS: Percent Saturation 22.4 % (15.0-50.0)
== END | disposition home or self-care (01) ==
LOC: LAB EV 16:38 → LAB SHORT 16:38
PROVIDERS: Internal Medicine Nephrology
DX: N18.3 Chronic kidney disease, stage 3 (moderate) (principal); D63.1 Anemia in chronic kidney disease; N25.81 Secondary hyperparathyroidism of renal origin; E55.9 Vitamin D deficiency, unspecified; E78.00 Pure hypercholesterolemia, unspecified; R76.9 Abnormal immunological finding in serum, unspecified; R94.5 Abnormal results of liver function studies; R94.6 Abnormal results of thyroid function studies; D51.8 Other vitamin B12 deficiency anemias
CPT/HCPCS: 80069; 82306; 82607; 82728; 82746; 83540; 83550; 83970; 85018

== ENCOUNTER → 2019-05-24 | Outpatient (CLI) | payer MEDICARE ==
[2019-05-24 11:45] LABS: Creatinine Urine 35.5 mg/dL (27.00-270.00); Protein, Urine Quantitative 149.5 mg/dL (0.0-11.9)
[2019-05-24 11:47] LABS: Microalbumin, Urine Quant. 30.2 mg/L (0.000-20.000)
== END | disposition home or self-care (01) ==
LOC: LAB 10:54 → LAB SHORT 10:54
PROVIDERS: Internal Medicine Nephrology
DX: N18.3 Chronic kidney disease, stage 3 (moderate) (principal); D63.1 Anemia in chronic kidney disease; N25.81 Secondary hyperparathyroidism of renal origin; E55.9 Vitamin D deficiency, unspecified; E78.00 Pure hypercholesterolemia, unspecified; R76.9 Abnormal immunological finding in serum, unspecified; R94.5 Abnormal results of liver function studies; R94.6 Abnormal results of thyroid function studies
CPT/HCPCS: 81050; 82043; 82570; 84156

== ENCOUNTER 2019-06-14 16:35 | Inpatient (IN) | payer MEDICARE ==
[~2019-06-14] VITALS: Ht 157.5 cm; Wt 63.3 kg
[~2019-06-14 16:35] MED LIST changes: -Bumetanide1 MG PO; -Bumetanide2 MG PO; -Calcitonin-Sal3.7 ML
[2019-06-14 17:28] LABS: BASOPHILS ABSOLUTE AUTO 0.03 K/mm3 (0.00-0.23); BASOPHILS PERCENT AUTO 0 % (0-2); EOSINOPHILS ABSOLUTE AUTO 0.03 K/mm3 (0.00-0.68); EOSINOPHILS PERCENT AUTO 0 % (0-6); Hematocrit 33.9 % (33.0-51.0); Hemoglobin 10.7 g/dL (11.5-16.0); IMMATURE GRAN ABSOLUTE AUTO 0.09 K/mm3 (0.00-0.10); IMMATURE GRAN PERCENT AUTO 1 % (0-1); LYMPHOCYTES ABSOLUTE AUTO 2.13 K/mm3 (0.84-5.20); LYMPHOCYTES PERCENT AUTO 27 % (21-46); MONOCYTES ABSOLUTE AUTO 0.51 K/mm3 (0.16-1.47); MONOCYTES PERCENT AUTO 7 % (4-13); Mean Corpuscular HGB Conc 31.6 g/dL (31.5-36.5); Mean Corpuscular Volume 102 fL (80-100); Mean Platelet Volume 9.9 fL (9.1-12.4); NEUTROPHILS ABSOLUTE AUTO 5.03 K/mm3 (1.96-9.15); NEUTROPHILS PERCENT AUTO 64 % (41-73); NRBC ABSOLUTE 0.04 K/mm3 (0.00-0.02); NRBC Auto 0.5 /100 WBC (0.0-0.2); Platelet Count 317 K/mm3 (150-400); RDW Coefficient Variation 14.7 % (11.7-14.2); RDW Standard Deviation 54.4 fL (35.1-46.3); Red Blood Cell Count 3.34 M/mm3 (3.80-5.20); White Blood Cell Count 7.82 K/mm3 (4.00-11.30)
[2019-06-14 17:58] LABS: Albumin, Blood 2.7 g/dL (3.4-5.0); Albumin/Globulin Ratio 0.9 (0.8-1.8); Bilirubin, Total 0.2 mg/dL (0.1-1.0); Bun/Creatinine Ratio 14.2 (12.0-20.0); Calcium, Blood 12.9 mg/dL (8.5-10.1); Creatinine, Blood 2.54 mg/dL (0.40-1.00); Globulin, Blood 3.1 g/dL (2.2-4.0); Potassium, Blood 3.9 mmol/L (3.5-5.5); Total Protein, Blood 5.8 g/dL (6.4-8.2)
[2019-06-14] MEDS ORDERED: Bumetanide2 MG PO (18:34)
[2019-06-14] MEDS ORDERED: ASCO500 PO (18:40)
[2019-06-14] MEDS ORDERED: PANT20 PO (20:17)
--- NOTE | 2019-06-14 22:53 | NUR ---
ADMIT NOTE PATIENT ARRIVED TO MEDICAL FLOOR ROOM 308 VIA [facility] FROM ER AT 1999. PATIENT ACCOMPANIED BY GRANDDAUGHTER. SHE WAS ABLE TO SELF TRANSFER FROM RHOP BOTTOM TO BED WITH MINIMAL DIFFICULTY. SHE IS ALERT AND ORIENTED, DENIES PAIN AT THIS TIME. GRANDDAUGHTER BROUGHT IN PATIENT'S ADVANCED DIRECTIVE WHICH IS PLACED IN HER CHART.
--- NOTE | 2019-06-15 04:10 | NUR ---
SHIFT SUMMARY PATIENT ADMITTED AT 1999 ON 06/14. PATIENT ON CONTACT PRECAUTIONS DUE TO A RECENT DIAGNOSIS OF MRSA. DNR BAND PLACED. PATIENT'S GRANDDAUGHTER REPORTED THAT SHE HAD BEEN HAVING A HARD TIME SLEEPING SINCE HER HOSPITAL STAY ABOUT TWO WEEKS AGO AND DUE TO THE RECENT LOSS OF HER , THEY REQUESTED A SEDATIVE TO HELP HER SLEEP. DISCUSSED THE SITUATION WITH THE HOSPITALIST AT 2315 WHO SUGGESTED THAT THE PATIENT TRY BENADRYL FIRST AND ORDERED A ONE TIME DOSE OF 25-50 MG WITH THE OPTION OF MAKING IT A NIGHTLY DOSE IF IT WAS EFFECTIVE. 25 MG DOSE OF BENADRYL GIVEN AT 0004. GRANDDAUGHTER ROOMING IN WITH PATIENT. IV PATENT AND INFUSING WITH NS AT 100ML/HR. CALL LIGHT WITHIN REACH. BED IN LOWEST POSITION WITH WHEELS LOCKED. REPORT GIVEN TO ONCOMING RN.
[2019-06-15 04:52] LABS: Bun/Creatinine Ratio 12.7 (12.0-20.0); Calcium, Blood 12.4 mg/dL (8.5-10.1); Creatinine, Blood 2.44 mg/dL (0.40-1.00); Potassium, Blood 3.6 mmol/L (3.5-5.5)
--- NOTE | 2019-06-15 06:19 | NUR ---
MRSA CLEARANCE SWABS TAKEN OF THE NARES AND THROAT. SPECIMINES SENT TO LAB.
--- NOTE | 2019-06-15 17:56 | NUR ---
NO ACUTE CHANGES TO PATIENT . SHE HAS SPENT THE DAY IN BED RESTING. PATIENT HAS HAD NO COMPLAINTS OF PAIN, NVD, OR SOB. CALL LIGHT WITHIN REACH.
--- NOTE | 2019-06-15 18:08 | NUR ---
Asked by family members to visit Bethany as she has just lost her four days ago. Numerous family coming throughout day, and it was not until this evening that I found Bethany alone in room. She is rather private and stoic, but she allowed me to comfort/grief counsellor a little bit. She is non-religous, but allowed prayer. I suspect she is still somewhat in shock. Gave information regarding bereavement grief counsellor and offered continued support. Vehicle [employer] will remain available.
--- NOTE | 2019-06-16 03:48 | NUR ---
SHIFT SUMMARY PATIENT HAD NO ACUTE CHANGES OBSERVED THIS SHIFT. AXOX 3 AND SBA TO BR. GRANDDAUGHTER PRESENT T/O SHIFT STAYING IN ROOM. VSS/AFEBRILE. DENIES PAIN, SOB, AND N/V. TAKES MEDS WHOLE WITH WATER. PIV REMAINS INTACT. NS INFUSING AT 100 mL/HR. CONTACT PRECAUTIONS. FAMILY PRESENT FIRST PART OF SHIFT. CALL LIGHT IN REACH. BED IN LOWEST POSITION. WILL CONTINUE TO MONITOR UNTIL DAY SHIFT NURSE ASSUMES CARE.
[2019-06-16 06:36] LABS: Bun/Creatinine Ratio 13.2 (12.0-20.0); Calcium, Blood 11.8 mg/dL (8.5-10.1); Creatinine, Blood 2.04 mg/dL (0.40-1.00); Potassium, Blood 3.4 mmol/L (3.5-5.5)
[2019-06-16] MEDS ORDERED: Bumetanide1 MG PO (11:09)
[2019-06-16] MEDS ORDERED: Calcitonin-Sal3.7 ML (11:12)
--- NOTE | 2019-06-16 11:36 | NUR ---
PT DISCHARGED 1126 VIA WC TO CAR FOR [facility] TO TAKE TO DR PROCTOR AT DR ELDER. SENT WITH DC INSTRUCTIONS AND PT BELONGINGS. DC'D IV.
== END 2019-06-16 11:26 | disposition home or self-care (01) | DRG 641 ==
LOC: ER 16:35 → MEDS 18:32 → ENPENDDIS 06-15 09:57 → MEDS 06-16 11:26
PROVIDERS: Physician Assistant; ADMIT Hospitalist
DX: E83.52 Hypercalcemia (principal); N18.4 Chronic kidney disease, stage 4 (severe); I50.32 Chronic diastolic (congestive) heart failure; I13.0 Hypertensive heart and chronic kidney disease with heart failure and stage 1 through stage 4 chronic kidney disease, or unspecified chronic kidney disease; J44.9 Chronic obstructive pulmonary disease, unspecified; E78.5 Hyperlipidemia, unspecified; E03.9 Hypothyroidism, unspecified; Z87.891 Personal history of nicotine dependence
CPT/HCPCS: 36415; 80048; 80053; 83970; 85025; 87081; 87147; 93005; 93010; 94640; 94760; 96360; 96361; 99285-25; C9113; J1940; J7030; Q0163

== ENCOUNTER → 2019-06-21 | Outpatient (CLI) | payer MEDICARE ==
[~2019-06-21] MED LIST changes: +Bumetanide1 MG PO; +Bumetanide2 MG PO; +Calcitonin-Sal3.7 ML
[2019-06-21 18:45] LABS: Creatinine Urine 65.3 mg/dL (27.00-270.00)
[2019-06-21 18:48] LABS: Microalbumin, Urine Quant. 42.7 mg/L (0.000-20.000)
[2019-06-21 18:53] LABS: Protein, Urine Quantitative 403.2 mg/dL (0.0-11.9)
== END | disposition home or self-care (01) ==
LOC: LAB SHORT 14:49 → OLS 14:49 → LAB FUT 06-19 17:15
PROVIDERS: Internal Medicine Nephrology
DX: N18.3 Chronic kidney disease, stage 3 (moderate) (principal); D63.1 Anemia in chronic kidney disease; N25.81 Secondary hyperparathyroidism of renal origin; E55.9 Vitamin D deficiency, unspecified; E78.00 Pure hypercholesterolemia, unspecified; R76.9 Abnormal immunological finding in serum, unspecified; R94.5 Abnormal results of liver function studies; R94.6 Abnormal results of thyroid function studies; D51.8 Other vitamin B12 deficiency anemias
CPT/HCPCS: 81050; 82043; 82570; 84156; 84300

== ENCOUNTER → 2019-06-22 | Outpatient (CLI) | payer MEDICARE ==
[2019-06-22 16:09] LABS: Albumin, Blood 2.9 g/dL (3.4-5.0); Albumin/Globulin Ratio 1.3 (0.8-1.8); Bilirubin, Total 0.3 mg/dL (0.1-1.0); Bun/Creatinine Ratio 14.6 (12.0-20.0); Creatinine, Blood 1.64 mg/dL (0.40-1.00); Globulin, Blood 2.2 g/dL (2.2-4.0); Potassium, Blood 4.1 mmol/L (3.5-5.5); Total Protein, Blood 5.1 g/dL (6.4-8.2)
== END | disposition home or self-care (01) ==
LOC: LAB 14:05 → LAB SHORT 14:05
PROVIDERS: Internal Medicine Hematology & Oncology
DX: D64.9 Anemia, unspecified (principal); E03.9 Hypothyroidism, unspecified; J44.9 Chronic obstructive pulmonary disease, unspecified
CPT/HCPCS: 80053

== ENCOUNTER 2019-07-27 13:09 | Emergency (ER) | payer MEDICARE ==
[~2019-07-27] VITALS: Ht 157.5 cm; Wt 68.0 kg
[2019-07-27 13:46] LABS: BASOPHILS ABSOLUTE AUTO 0.01 K/mm3 (0.00-0.23); BASOPHILS PERCENT AUTO 0 % (0-2); EOSINOPHILS PERCENT AUTO 0 % (0-6); Hematocrit 30.9 % (33.0-51.0); Hemoglobin 9.4 g/dL (11.5-16.0); IMMATURE GRAN ABSOLUTE AUTO 0.13 K/mm3 (0.00-0.10); IMMATURE GRAN PERCENT AUTO 2 % (0-1); LYMPHOCYTES ABSOLUTE AUTO 0.97 K/mm3 (0.84-5.20); LYMPHOCYTES PERCENT AUTO 11 % (21-46); MONOCYTES ABSOLUTE AUTO 0.41 K/mm3 (0.16-1.47); MONOCYTES PERCENT AUTO 5 % (4-13); Mean Corpuscular HGB Conc 30.4 g/dL (31.5-36.5); Mean Corpuscular Volume 108 fL (80-100); Mean Platelet Volume 11.1 fL (9.1-12.4); NEUTROPHILS ABSOLUTE AUTO 7.06 K/mm3 (1.96-9.15); NEUTROPHILS PERCENT AUTO 82 % (41-73); NRBC ABSOLUTE 0.02 K/mm3 (0.00-0.02); NRBC Auto 0.2 /100 WBC (0.0-0.2); Platelet Count 223 K/mm3 (150-400); RDW Coefficient Variation 17.2 % (11.7-14.2); RDW Standard Deviation 68.4 fL (35.1-46.3); Red Blood Cell Count 2.85 M/mm3 (3.80-5.20); White Blood Cell Count 8.58 K/mm3 (4.00-11.30)
[2019-07-27 14:08] LABS: Albumin, Blood 3.3 g/dL (3.4-5.0); Albumin/Globulin Ratio 1.2 (0.8-1.8); Bilirubin, Total 0.4 mg/dL (0.1-1.0); Bun/Creatinine Ratio 16.3 (12.0-20.0); Calcium, Blood 7.7 mg/dL (8.5-10.1); Creatinine, Blood 2.52 mg/dL (0.40-1.00); Globulin, Blood 2.7 g/dL (2.2-4.0); Potassium, Blood 5.6 mmol/L (3.5-5.5); Troponin I 0.184 ng/mL (0.000-0.040)
[2019-07-27] MEDS ORDERED: Roxicodone5 MG PO (15:37)
[2019-07-27] MEDS ORDERED: NYST237S MT (15:48)
== END 2019-07-27 15:54 | disposition home or self-care (01) ==
LOC: ER 13:09
PROVIDERS: Physician Assistant
DX: R07.89 Other chest pain (principal); I10 Essential (primary) hypertension; J44.9 Chronic obstructive pulmonary disease, unspecified; I13.0 Hypertensive heart and chronic kidney disease with heart failure and stage 1 through stage 4 chronic kidney disease, or unspecified chronic kidney disease; N18.9 Chronic kidney disease, unspecified; I50.9 Heart failure, unspecified; W18.30XA Fall on same level, unspecified, initial encounter
CPT/HCPCS: 36415; 71046; 80053; 83880; 84484; 85025; 93005; 93010; 96374; 99284-25; J1170

== ENCOUNTER → 2019-08-05 | Outpatient (CLI) | payer MEDICARE ==
[~2019-08-05] MED LIST changes: +ACET325 PO; +ALLO100 PO; +Ativan1 MG PO; +BACTRIM DS TAB1 EACH PO; +DEXA4 PO; +FAMC500 PO; +GABA100 PO; +HYDMOR2 PO; +LABE100 PO; +NYST237S MT; +ONDA4ODT MM; +Revlimid5 MG PO; +Roxicodone5 MG PO
[2019-08-05 16:53] LABS: BASOPHILS ABSOLUTE AUTO 0.01 K/mm3 (0.00-0.23); BASOPHILS PERCENT AUTO 1 % (0-2); EOSINOPHILS ABSOLUTE AUTO 0.07 K/mm3 (0.00-0.68); EOSINOPHILS PERCENT AUTO 4 % (0-6); Hematocrit 26.2 % (33.0-51.0); Hemoglobin 8.6 g/dL (11.5-16.0); IMMATURE GRAN ABSOLUTE AUTO 0.02 K/mm3 (0.00-0.10); IMMATURE GRAN PERCENT AUTO 1 % (0-1); LYMPHOCYTES ABSOLUTE AUTO 0.29 K/mm3 (0.84-5.20); LYMPHOCYTES PERCENT AUTO 15 % (21-46); MONOCYTES PERCENT AUTO 11 % (4-13); Mean Corpuscular HGB 33.6 pg (26.0-34.0); Mean Corpuscular HGB Conc 32.8 g/dL (31.5-36.5); NEUTROPHILS ABSOLUTE AUTO 1.32 K/mm3 (1.96-9.15); NEUTROPHILS PERCENT AUTO 69 % (41-73); Platelet Count 93 K/mm3 (150-400); RDW Standard Deviation 58.9 fL (35.1-46.3); Red Blood Cell Count 2.56 M/mm3 (3.80-5.20); White Blood Cell Count 1.91 K/mm3 (4.00-11.30)
[2019-08-05 17:00] LABS: Mean Corpuscular Volume 102 fL (80-100); Mean Platelet Volume 13.3 fL (9.1-12.4)
[2019-08-05 17:12] LABS: Albumin, Blood 2.9 g/dL (3.4-5.0); Albumin/Globulin Ratio 1.5 (0.8-1.8); Bilirubin, Total 0.6 mg/dL (0.1-1.0); Bun/Creatinine Ratio 28.6 (12.0-20.0); Calcium, Blood 6.8 mg/dL (8.5-10.1); Creatinine, Blood 2.66 mg/dL (0.40-1.00); Globulin, Blood 1.9 g/dL (2.2-4.0); Potassium, Blood 3.8 mmol/L (3.5-5.5); Total Protein, Blood 4.8 g/dL (6.4-8.2)
[2019-08-05 17:26] LABS: Albumin, Blood 2.9 g/dL (3.4-5.0); Anion Gap 14 mmol/L (6-16); Blood Urea Nitrogen 76 mg/dL (8-24); Bun/Creatinine Ratio 28.6 (12.0-20.0); CO2, Blood 21 mmol/L (21-32); Calcium, Blood 6.8 mg/dL (8.5-10.1); Chloride, Blood 100 mmol/L (98-108); Creatinine, Blood 2.66 mg/dL (0.40-1.00); Glomerular Filtration Rate 17 (60-); Glucose, Blood 86 mg/dL (70-99); Phosphorus, Blood 3.6 mg/dL (2.5-4.9); Potassium, Blood 3.8 mmol/L (3.5-5.5); Sodium, Blood 135 mmol/L (136-145)
== END | disposition home or self-care (01) ==
LOC: LAB EV 16:43 → LAB SHORT 16:43
PROVIDERS: Internal Medicine Nephrology; Physician Assistant
DX: N18.4 Chronic kidney disease, stage 4 (severe) (principal)
CPT/HCPCS: 80053; 80069; 84100; 85025

== ENCOUNTER 2019-08-21 23:47 | Inpatient (IN) | payer MEDICARE ==
[~2019-08-21] VITALS: Ht 157.5 cm; Wt 58.7 kg
[~2019-08-21 23:47] MED LIST changes: -ACET325 PO; -ALLO100 PO; -Ativan1 MG PO; -BACTRIM DS TAB1 EACH PO; -DEXA4 PO; -FAMC500 PO; -GABA100 PO; -HYDMOR2 PO; -LABE100 PO; -ONDA4ODT MM; -Revlimid5 MG PO
[2019-08-22 00:10] LABS: BASOPHILS ABSOLUTE AUTO 0.02 K/mm3 (0.00-0.23); BASOPHILS PERCENT AUTO 1 % (0-2); EOSINOPHILS ABSOLUTE AUTO 0.05 K/mm3 (0.00-0.68); EOSINOPHILS PERCENT AUTO 3 % (0-6); Hematocrit 27.3 % (33.0-51.0); Hemoglobin 8.2 g/dL (11.5-16.0); IMMATURE GRAN ABSOLUTE AUTO 0.21 K/mm3 (0.00-0.10); IMMATURE GRAN PERCENT AUTO 13 % (0-1); LYMPHOCYTES ABSOLUTE AUTO 0.31 K/mm3 (0.84-5.20); LYMPHOCYTES PERCENT AUTO 19 % (21-46); MONOCYTES ABSOLUTE AUTO 0.11 K/mm3 (0.16-1.47); MONOCYTES PERCENT AUTO 7 % (4-13); Mean Corpuscular HGB 34.6 pg (26.0-34.0); Mean Corpuscular Volume 115 fL (80-100); NEUTROPHILS ABSOLUTE AUTO 0.94 K/mm3 (1.96-9.15); NEUTROPHILS PERCENT AUTO 57 % (41-73); NRBC Auto 6.1 /100 WBC (0.0-0.2); Platelet Count 129 K/mm3 (150-400); RDW Coefficient Variation 19.1 % (11.7-14.2); RDW Standard Deviation 78.2 fL (35.1-46.3); Red Blood Cell Count 2.37 M/mm3 (3.80-5.20); White Blood Cell Count 1.64 K/mm3 (4.00-11.30)
[2019-08-22 00:24] LABS: Albumin, Blood 2.2 g/dL (3.4-5.0); Bilirubin, Total 0.3 mg/dL (0.1-1.0); Bun/Creatinine Ratio 20.8 (12.0-20.0); Calcium, Blood 7.3 mg/dL (8.5-10.1); Creatinine, Blood 2.26 mg/dL (0.40-1.00); Globulin, Blood 2.2 g/dL (2.2-4.0); Potassium, Blood 5.1 mmol/L (3.5-5.5); Total Protein, Blood 4.4 g/dL (6.4-8.2); Troponin I 0.16 ng/mL (0.000-0.040)
[2019-08-22 00:29] LABS: BAND PERCENT MAN 7 % (0-8); BASOPHILS ABSOLUTE MAN 0.03 K/mm3 (0.00-0.23); BASOPHILS PERCENT MAN 2 % (0-2); EOSINOPHILS ABSOLUTE MAN 0.04 K/mm3 (0.00-0.68); EOSINOPHILS PERCENT MAN 3 % (0-6); LYMPHOCYTES ABSOLUTE MAN 0.32 K/mm3 (0.84-5.20); LYMPHOCYTES PERCENT MAN 20 % (21-46); MONOCYTES ABSOLUTE MAN 0.04 K/mm3 (0.16-1.47); MONOCYTES PERCENT MAN 3 % (4-13); NEUTROPHILS ABSOLUTE MAN 1.18 K/mm3 (1.96-9.15); SEG NEUTROPHILS PERCENT MAN 65 % (41-73); TOTAL CELLS COUNTED 100
[2019-08-22] MEDS ORDERED: ALLO100 PO (00:29)
[2019-08-22] MEDS ORDERED: BACTRIM DS TAB1 EACH PO (00:30)
[2019-08-22] MEDS ORDERED: FAMC500 PO (00:31)
[2019-08-22] MEDS ORDERED: ONDA4ODT MM (00:31)
[2019-08-22] MEDS ORDERED: DEXA4 PO (00:32)
[2019-08-22] MEDS ORDERED: Revlimid5 MG PO (00:33)
[2019-08-22] MEDS ORDERED: HYDMOR2 PO (00:34)
[2019-08-22] MEDS ORDERED: GABA100 PO (00:35)
[2019-08-22 03:09] LABS: Free Thyroxine 1.32 ng/dL (0.70-1.60)
[2019-08-22 03:10] LABS: Triiodothyronine, Free 1.08 pg/mL (2.18-3.98)
--- NOTE | 2019-08-22 04:00 | NUR ---
PT TO ICU 2 @ 0244 VIA GURNEY WITH TWO ED RN'S. PT AWAKE, ANSWERING QUESTIONS DENIES CP/SOB/DIZZINESS. LS CLEAR, DIM IN THE BASES, RESPIRATIONS EVEN AND UNLABORED, ON RA WITH O2 SATURATIONS ABOVE 94%. MONITOR SHOWS AFIB WITH HR 90'S-120'S, BP 70'S SYSTOLIC AND 40-50'S DIASTOLIC, MAPS IN THE 50'S, 2ND FLUID BOLUS RUNNING FROM ED. BOWEL TONES HYPOACTIVE, LAST BM 08/21, PT REPORTS POOR PO INTAKE DUE TO PAIN RELATED THRUSH INFECTION THAT BEGAN MID-JUNE WHEN PT STARTED CHEMOTHERAPY TREATMENTS, PT HAS REQUIRED SOFT TO LIQUID FOODS AND REPOTS OVER 20lbs OF WEIGHT LOSS RECENTLY. PT HAS DECREASED KIDNEY FUNCTION AT BASELINE, NO URINE OUTPUT YET FOR THIS HOSPITAL STAY. PTS SKIN IS FRAGILE, POOR TURGOR, THERE IS A PRESSURE ULCER PRESENT TO THE PTS L HIP WHICH PT STS IS FROM LAYING ON HER SIDE FOR TOO LONG AT HOME. CURRENT ILLNESS PT REPORTS MEDICATION CHANGES IN THE PREVIOUS MONTH, HAS NOT RECEIVED BUMEX OR LABETOLOL FOR APPROX 3 WEEKS DUE TO LOW BP, SINCE STOPPING THESE MEDICATIONS HER BP HAVE RUN 110-120 SYSTOLIC AND 80'S DIASTOLIC. AT DOCTORS VISIT ON 08/21 @ APPROX 1530, PT WAS GIVEN 150mg LABETOLOL FOR A HR ABOVE 200. PT STARTED FEELING TIRED AT HOME WITH AN "ASHY" SKIN TONE, GRANDDAUGHTER MEASURED BP AT APPROX 2000 AND GOT A READING OF 60/40, PT RESISTANT TO COME TO HOSPITAL BUT GRANDDAUGHTER CALLED EMS ONCE NO IMPROVEMENT WAS NOTED. PT HAS BEEN LIVING ALONE AT HOME SINCE MAY WHEN HER SPOUSE , APPROX ONE MONTH LATER PT WAS DIAGNOSED WITH CANCER. SHE USES A WALKER AND WHEELCHAIR AT HOME AND REQUIRES SIGNIFICANT HELP WITH ADL'S, FRIENDS AND FAMILY ARE CURRENTLY ASSISTING PT WITH EVERYDAY ACTIVITIES. FAMILY TO BRING IN FAMCICLOVIR AND REVLIMID MEDICATIONS TO THE HOSPITAL FOR ADMINISTRATION.
--- NOTE | 2019-08-22 06:39 | NUR ---
SHIFT SUMMARY PT RESTING IN BED, AROUSES TO VERBAL STIMULIS. PT REMAINS ON RA, O2 SATURATIONS ABOVE 90%. PT REMAINS IN AFIB, RATE 90'S-120'S, BP SOMEWHAT IMPROVED WITH SBP 70'S-80'S AND MAP 55-60'S, NS INFUSING AT 100ml/hr. PT DENIES ANY COMPLAINTS, WATER PROVIDED, CALL LIGHT WITHIN REACH.
--- NOTE | 2019-08-22 06:51 | NUR ---
DR MARION IN TO SEE PT.
--- NOTE | 2019-08-22 07:15 | NUR ---
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
--- NOTE | 2019-08-22 08:00 | NUR ---
DR. CORDOVA IN TO SEE PATIENT, NEW ORDERS RECEIVED.
--- NOTE | 2019-08-22 08:13 | NUR ---
IMAGING IN TO SEE PATIENT FOR ORDERED RENAL ULTRASOUND.
--- NOTE | 2019-08-22 08:23 | NUR ---
PER RENAL U/S PATIENT HAS AT LEAST 500 CC OF URINE IN BLADDER, DR. MARION NOTIFIED, ORDER WAS GIVEN TO PLACE ZELAYA.
--- NOTE | 2019-08-22 08:57 | NUR ---
ZELAYA CATHETER INSERTED, PATIENT HAD IMMEDIATELY OVER 600 OF URINE OUT, UA SENT, ALSO RECEIVED CALL FROM INFECTION CONTRAL AND WILL DO MRSA SWAB, PATIENT IS TRYING TO EAT BREAKFAST AFTER USING MAGIC MOUTHWASH, BUT REPORTS THAT IT STILL HURTS AND SOME BLOOD WAS NOTED WHEN PATIENT SPIT OUT MAGIC MOUTHWASH.
--- NOTE | 2019-08-22 08:58 | NUR ---
PATIENT'S DAUGHTER CALLED AND UPDATE WAS PROVIDED.
[2019-08-22 09:09] LABS: Source, Urine Catheter
[2019-08-22 09:22] LABS: Bilirubin, Urine Neg (Neg); Blood, Urine Neg (Neg); Glucose Qualitative, Urine Neg (Neg); Ketones, Urine Neg (Neg); Leukocyte Esterase, Urine Neg (Neg); Nitrite, Urine Neg (Neg); Protein, Urine 2+ (Neg); Specific Gravity, Urine 1.015 (1.003-1.022); Urobilinogen, Urine NORM (Normal)
[2019-08-22 09:59] LABS: Appearance, Urine Hazy (Clear); Color, Urine Yellow (P-Yellow); Red Blood Cells, Urine Not Seen /hpf (0-2); White Blood Cells, Urine Not Seen /hpf (0-5)
[2019-08-22 10:00] LABS: Bacteria Not Seen /hpf; Granular Casts Rare /lpf (0); Squamous Epithelial Cells Not Seen /hpf (Few)
--- NOTE | 2019-08-22 11:02 | NUR ---
PATIENT'S SISTER IN TO VISIT, UPDATE ON PATIENT CONDITION PROVIDED.
--- NOTE | 2019-08-22 13:40 | NUR ---
PATIENT RECEIVED 4 MG ZOFRAN IV ORDERED FOR SLIGHT NAUSEA AFTER EATING FEW BITES OF LUNCH, SISTER CONTINUES AT BEDSIDE, WAS INQUIRING ABOUT PATIENT RECEIVING SLEEP AIDS AND DILAUDID AT NIGHT, WILL PASS ON TO DR. CORDOVA, CALL LIGHT IN REACH, WILL CONTINUE TO MONITOR.
--- NOTE | 2019-08-22 13:58 | NUR ---
PATIENT'S HEART RATE IN 150'S, BACK TO 120'S THEN AGAIN UP TO 150'S, DR. CORDOVA NOTIFIED, NO NEW ORDERS RECEIVED, WILL COME AND SEE PATIENT.
--- NOTE | 2019-08-22 14:22 | NUR ---
PATIENT'S GRANDDAUGHTER AT BEDSIDE, BROUGHT IN PATIENT'S CHEMOTHERAPY MEDICATION, BUT WAS UNWILLING TO SURRENDER IT FOR THIS RN TO SENT TO PHARMACY FOR A SCANNING STICKER, VERY SHORT AND ABRUPT, CUT OFF THIS RN WHEN TRYING TO EXPLAIN CURRENT SITUATION, DR. CORDOVA IN TO SEE PATIENT, EXPLAINED TO FAMILY THAT TODAY WE WILL NOT ADMINISTER CHEMOTHERAPY DRUG, ALSO CALLED DR. POWELL SO THAT DR. CORDOVA COULD SPEAK WITH HIM, PATIENT'S HR IN 120'S, CALL LIGHT IN REACH, WILL CONTINUE TO MONITOR.
--- NOTE | 2019-08-22 15:30 | NUR ---
PTAIENT RESTING COMFORTABLY, FAMILY MEMBER AT BEDSIDE, CALL LIGHT IN REACH, WILL CONTINUE TO MONITOR.
--- NOTE | 2019-08-22 16:30 | NUR ---
Late Entry: Pt was seen for initial palliative care evaluation. She has severe stomatitis and thrush. This is painful for her, but she denies other body pains at this time. Pt has been refusing to eat due to the pain in her mouth. The magic mouthwash is effective a little bit, but not to the degree where she can tolerate food. Her appetite is poor. Granddaughter is at bedside and reports that she is sleeping a lot at home. Pt reports fatigue and she reports "zero motivation" since starting therapy for multiple myeloma. She lives independently, but has caregivers come in to help her. She has a supportive family. Her sister, daughter, and granddaughter provide emotional support, but are limited caregiver support as they all work and have maintenance planning clerk jobs. Pt is not aware if the treatment she is getting is curative or palliative. Explained difference to her. She will try to remember to ask Dr. Calabrese what the goals of treatment are. Pt reports that she has not slept here in the hospital well, due to noise level. She is photosensitive and prefers a darker room. This is a symptom that has just developed since starting treatments. She is short with answers and states, "I just don't feel like talking right now." Confirmed DNR/DNI status. Pt does have advance directive on file. Confirmed that her sister is alternate decision maker. No other concerns at this time. Will remain available.
--- NOTE | 2019-08-22 17:37 | NUR ---
SHIFT SUMMARY REPORT: NO ACUTE EVENTS DURING THIS SHIFT, PATIENT IS AWAKE MOST OF THE TIME BUT DOZES OFF HERE AND THERE, REFUSED ALL MEALS, C/O DISCOMFORT D/T ORAL THRUSH, ATE SMALL AMOUNT OF PUDDING HER SISTER BROUGHT IN, FAMILY WAS IN AND WAS UPDATED ON PATIENT CONDITION BY DR. CORDOVA, CHEMOTHERAPY ON HOLD FOR NOW PER DR. CORDOVA, DR. MARION GAVE ORDER FOR ZELAYA CATHETER AFTER BLADDER SCAN SHOWED THAT PATIENT HAD MORE THAN 600 CC'S IN BLADDER WITHOUT FEELING THE URGE TO VOID, PATIENT CONTINUES TO BE AFEBRILE AND DENIES PAIN, FOR DETAILS SEE SHIFT ASSESSMENT DOCUMENTATION AND NURSES NOTES, CALL LIGHT IN REACH, WILL CONTINUE TO MONITOR AND GIVE REPORT TO ONCOMING RUBBER CURER.
--- NOTE | 2019-08-22 17:47 | NUR ---
Initial spiritual care note: Mrs. Alcazar appeared tired at time of visit. she did not say much, but smiled easily. Her sister was at bedside and seems loving/concerned. Sister tells me that Bethany is 1 month into her cancer buckley. "She's a fighter." Both women express hope that Bethany will survive with chemo. They are not jew, but responded well to affirmation of obvious love. Offered emotional support and correctional counselor. No concerns presented. Both were complimentary of nursing. I will remain available.
--- NOTE | 2019-08-22 20:58 | NUR ---
ASSUMED CARE OF PT, REPORT RCV'D FROM DANIA GARCIA. PT ALERT AND ORIENTED LAYING IN BED. PT'S FAMILY AT BEDSIDE. PT DENIES PAIN, NEW OR WORSENING SOB. LUNG SOUNDS CLEAR/DIM, SATS>96% ON RA. HR 115-150'S. ZELAYA PATENT AND DRAINING CLEAR YELLOW URINE. PT DENIES NEEDS AT THIS TIME. SEE FULL SHIFT ASSESSMENT.
[2019-08-23 04:09] LABS: Hematocrit 25.2 % (33.0-51.0); Hemoglobin 7.5 g/dL (11.5-16.0)
[2019-08-23 04:52] LABS: Albumin, Blood 2.1 g/dL (3.4-5.0); Anion Gap 9 mmol/L (6-16); Blood Urea Nitrogen 42 mg/dL (8-24); CO2, Blood 17 mmol/L (21-32); Calcium, Blood 6.8 mg/dL (8.5-10.1); Chloride, Blood 117 mmol/L (98-108); Creatinine, Blood 2.47 mg/dL (0.40-1.00); Glomerular Filtration Rate 20 (60-); Glucose, Blood 88 mg/dL (70-99); Magnesium, Blood 1.9 mg/dL (1.6-2.4); Phosphorus, Blood 2.1 mg/dL (2.5-4.9); Potassium, Blood 4.4 mmol/L (3.5-5.5); Sodium, Blood 143 mmol/L (136-145)
--- NOTE | 2019-08-23 06:17 | NUR ---
SHIFT SUMMARY NO ACUTE CHANGES OVERNIGHT. HR BETWEEN 130'S-140'S. SPB IN 100'S, PT GIVE 1L BOLUS PER PHYSICIAN ORDER FOLLOWING PERIOD OF HYPOTENSION. PT HAD 400 ML URINARY OUTPUT. PT PLACED ON 2LNC OVERNIGHT TO MAINTAIN O2>90%. PT'S MOUTH BLOODY D/T ORAL THRUSH. PT REFUSED "MAGIC MOUTHWASH", CLEANED WITH WASHCLOSH. WILL REPORT TO DAYSHIFT NURSE.
--- NOTE | 2019-08-23 08:41 | NUR ---
0700: CARE ASSUMED, ASSESSMENT COMPLETED. PT RESTING IN BED, DENIES SOB, CHEST PAIN/PRESSURE, OR PALPITATIONS AT THIS TIME. HR 120-140 AFIB, LS CLEAR ON RIGHT, DIM IN BILAT BASES, FINE EXPIRATORY WHEEZES ON LEFT. SPO2 MID 90'S ON 2L/NC, TRACE EDEMA TO BLE'S. BLOOD OOZING FROM PT'S MOUTH, ORAL MUCOSA AND TONGUE APPEAR RAW AND RED, PT REPORTS PAIN IN MOUTH. PAIN/BLEEDING DISCUSSED IWTH DR. CORDOVA, NO NEW ORDERS AT THIS TIME. WILL ADMINISTER MAGIC MOUTHWASH. 0800: PT SAT UP IN BED FOR BREAKFAST, BECAME VERY SOB, LS TIGHT WITH EXPIRATORY WHEEZES T/O, SPO2 89-91% ON 2L/NC. RT AND DR. CORDOVA AT BEDSIDE, NEB TREATMENT, METOPROLOL AND SOLUMEDROL ADMINISTERED, BIPAP PLACED AT 8/5 WITH 40% FIO2. CXR COMPLETED, AWARE OF RESULTS. PT TOLERATING BIPAP WELL, LS DIMINISHED, AIR MOVEMENT IMPROVED, NO WHEEZES NOTED. SPO2 98%. PT ABLE TO TAKE PO MEDICATIONS WITHOUT DIFFICULTY. MOUTH CONTINUES TO OOZE BLOOD, AWARE. PT RESTING QUIETLY IN BED, NO ANXIETY NOTED, PT DENIES SOB, HAS DENIED CP T/O EPISODE. IVF DC'D PER DR. CORDOVA, HOLDING PRBC TRANSFUSION, SODIUM BICARB, AND SOIDUM PHOSPATE PER ORDERS. HR 120-140 AFIB, BP TOLERATING METOPROLOL WELL.
--- NOTE | 2019-08-23 10:00 | NUR ---
1000: PT CONTINUES TO REST IN BED, BIPAP ON WITH SETTINGS UNCHANGED. SPO2 98%, PT DENIES SOB OR C/O. SISTER AT BEDSIDE.
--- NOTE | 2019-08-23 13:05 | NUR ---
1245: PT DENIES SOB, SPO2 96% ON BIPAP WITH SETTINGS UNCHANGED, LS CLEAR, DIM IN BASES. BIPAP REMOVED FOR LUNCH, O2 3L/NC PLACED, SPO2 95%. PT SAT UP IN BED, IMMEDIATELY C/O SEVERE SOB, SPO2 DROPPED TO 93%, LS WITH EXPIRATORY WHEEZES T/O. BIPAP REPLACED, SPO2 UP TO 96%, PT REPORTS SOB IS DECREASING, HOB REMAINS UP. WILL CONTINUE TO MONITOR. HR 130'S, BP STABLE.
--- NOTE | 2019-08-23 17:50 | NUR ---
1400: PT RESTING QUIETLY IN BED WATCHING TV, FAMILY AT BEDSIDE. PT DENIES SOB OR CP AT THIS TIME. HR 100-130'S AFIB, BP STABLE. 1600: PT SLEEPING, VS UNCHANGED, BIPAP REMAINS ON, 03/27, FIO2 30%. 1630: BEDBATH COMPLETED, PT TOLERATED WELL. ORAL CARE PROVIDED, NO ACTIVE BLEEDING NOTED FROM PT'S MOUTH AT THIS TIME. MAGIC MOUTHWASH X3 TODAY. VS AND BIPAP SETTINGS UNCHANGED, PT DENIES OTHER NEEDS.
--- NOTE | 2019-08-23 18:25 | NUR ---
PT TOLERATED BIPAP WELL T/O DAY WITHOUT SEDATIVES, SPO2 96-98%, RR 16-24. BIPAP SETTINGS 8/5, FIO2 30%. NO BLEEDING NOTED FROM PATIENTS MOUTH SINCE THIS MORNING, MOUTH REMAINS TENDER AND RAW. HR AFIB 100-130'S, PT HAS DENIED CHEST PAIN T/O DAY, DENIES SOB WHILE WEARING BIPAP BUT HAS BEEN UNABLE TO TOELRATE TAKING BIPAP OFF. LS CLEAR AT THIS TIME, NO WHEEZING NOTED, WHEEZES RETURN ALMOST IMMEDIATELY WITH REMOVAL OF BIPAP DESPITE SUPPLEMENTAL O2. PT ON RA AT HOME. TOLERATES PO MEDICATIONS WELL, POOR ORAL INTAKE SECONDARY TO ORAL PAIN. PT SLEEPING AT THIS TIME, HR 137, OTHER VSS, NO SUSTAINED HYPOTENSION THIS SHIFT. GOOD URINE OUTPUT AFTER LASIX. PT ORIENTED X4. REPORT TO ONCOMING SHIFT.
--- NOTE | 2019-08-24 03:00 | NUR ---
PT AWAKENS, REQUEST WATER. ORAL CARE PROVIDED WHILE BREAK FROM BIPAP. PT WITH NO CHANGES FROM INITIAL ASSESSMENT. PT REPOSITIONED. VSS. BIPAP PLACED PER PT REQUEST. CALL LIGHT WITHIN REACH.
[2019-08-24 04:06] LABS: BASOPHILS PERCENT AUTO 0 % (0-2); EOSINOPHILS PERCENT AUTO 0 % (0-6); Mean Corpuscular HGB 33.8 pg (26.0-34.0); Mean Corpuscular HGB Conc 29.6 g/dL (31.5-36.5); Mean Corpuscular Volume 114 fL (80-100); NRBC Auto 4.6 /100 WBC (0.0-0.2); Platelet Count 74 K/mm3 (150-400); RDW Coefficient Variation 19.8 % (11.7-14.2); RDW Standard Deviation 82.7 fL (35.1-46.3); Red Blood Cell Count 2.37 M/mm3 (3.80-5.20); White Blood Cell Count 2.18 K/mm3 (4.00-11.30)
[2019-08-24 04:09] LABS: IMMATURE GRAN ABSOLUTE AUTO 0.01 K/mm3 (0.00-0.10); IMMATURE GRAN PERCENT AUTO 1 % (0-1); LYMPHOCYTES ABSOLUTE AUTO 1.13 K/mm3 (0.84-5.20); LYMPHOCYTES PERCENT AUTO 52 % (21-46); MONOCYTES ABSOLUTE AUTO 0.08 K/mm3 (0.16-1.47); MONOCYTES PERCENT AUTO 4 % (4-13); NEUTROPHILS ABSOLUTE AUTO 0.96 K/mm3 (1.96-9.15); NEUTROPHILS PERCENT AUTO 44 % (41-73)
[2019-08-24 04:19] LABS: Albumin, Blood 2.2 g/dL (3.4-5.0); Anion Gap 13 mmol/L (6-16); Blood Urea Nitrogen 47 mg/dL (8-24); Bun/Creatinine Ratio 17.7 (12.0-20.0); CO2, Blood 16 mmol/L (21-32); Calcium, Blood 6.7 mg/dL (8.5-10.1); Chloride, Blood 114 mmol/L (98-108); Creatinine, Blood 2.66 mg/dL (0.40-1.00); Glomerular Filtration Rate 18 (60-); Glucose, Blood 104 mg/dL (70-99); Magnesium, Blood 1.9 mg/dL (1.6-2.4); Phosphorus, Blood 4.4 mg/dL (2.5-4.9); Potassium, Blood 4.6 mmol/L (3.5-5.5); Sodium, Blood 143 mmol/L (136-145)
--- NOTE | 2019-08-24 06:18 | NUR ---
DR. MARION TO BEDSIDE. LAB VALUES REVIEWED. NEW ORDER TO START D5 3amp BICARB AT 50/hr.
--- NOTE | 2019-08-24 07:00 | NUR ---
ASSUMED CARE NOTE: ASSUMED CARE OF PT AT 0700, RECEVIED REPORT FROM BRONWYN NAJERA. PT A/OX4. PT WAS ON BIPAP UPON ENTERING ROOM, AND WAS THEN PLACED ON 2L OF O2 VIA NC, SPO2 REMAINED ABOVE 95%. PT IS C/O MOUTH DISCOMFORT, ORAL CARE WAS PROVIDED AND MAGIC MOUTHWASH WAS GIVEN PER EMAR. PT IS IN AFIB- WITH HR BETWEEN 110-120. SBP ABOVE 100. ZELAYA PATNET AND DRAINING CLEAR YELLOW URINE. WILL CONTINUE TO MONITOR PT T/O SHIFT.
--- NOTE | 2019-08-24 11:34 | NUR ---
UPDATE: PT IS NOW ON 1L OF O2 VIA NC. PT DENIES SOB, SPO2 ABOVE 94%. SBP REMAINING ABOVE 100.
--- NOTE | 2019-08-24 18:39 | NUR ---
SHIFT SUMMARY: PT HAS REMAINED ON ROOM AIR FOR THE MAJORITY OF THE SHIFT, SPO2 ABOVE 95%. PT IN AFIB WITH HR RANGING FROM 110-130 BPM, PT DENIES ANY CP/SOB. PT HAS BEEN TAKING ENSURE FOR MEALS AND JELLO. PT C/O OF ORAL PAIN, PT GIVEN MAGIC MOUTHWASH PER EMAR, PT STATES THAT IT IS EFFECTIVE. PT SBP REMAINED ABOVE 100 FOR SHIFT. WANTED PT TO STAY IN ICU TO EVALUATE INCREASE DOSAGE OF BP MED. ZELAYA PATENT AND DRAINING YELLOW CLEAR URINE, 400ML FOR URINE OUTPUT. WILL CONTINUE TO MONITOR PT UNTIL REPIRT IS GIVEN TO ONCOMING SHIFT.
--- NOTE | 2019-08-24 19:35 | NUR ---
ASSUME CARE PT IN BED,FAMILY AT BEDSIDE. PT ON RA W SATS ABOVE 95%. PT A&O. PULSES STRONG THROUGHOUT. LUNG CTAB W DIMINISHED BASES. AFEBRILE. ZELAYA PATENT AND DRAINING TO GRAVITY. IV ON L HAND PATENT, L AC LEAKING. WILL DC AND PLACE NEW IV. SODIUM BICARB INFUSING. WILL CONTNUE TO MONITOR
[2019-08-25 04:18] LABS: BASOPHILS PERCENT AUTO 0 % (0-2); EOSINOPHILS ABSOLUTE AUTO 0.01 K/mm3 (0.00-0.68); EOSINOPHILS PERCENT AUTO 0 % (0-6); Hematocrit 25.8 % (33.0-51.0); Hemoglobin 7.9 g/dL (11.5-16.0); IMMATURE GRAN ABSOLUTE AUTO 0.02 K/mm3 (0.00-0.10); IMMATURE GRAN PERCENT AUTO 1 % (0-1); LYMPHOCYTES ABSOLUTE AUTO 1.55 K/mm3 (0.84-5.20); LYMPHOCYTES PERCENT AUTO 46 % (21-46); MONOCYTES ABSOLUTE AUTO 0.29 K/mm3 (0.16-1.47); MONOCYTES PERCENT AUTO 9 % (4-13); Mean Corpuscular HGB 34.8 pg (26.0-34.0); Mean Corpuscular HGB Conc 30.6 g/dL (31.5-36.5); Mean Corpuscular Volume 114 fL (80-100); Mean Platelet Volume 12.8 fL (9.1-12.4); NEUTROPHILS ABSOLUTE AUTO 1.49 K/mm3 (1.96-9.15); NEUTROPHILS PERCENT AUTO 44 % (41-73); NRBC ABSOLUTE 0.17 K/mm3 (0.00-0.02); NRBC Auto 5.1 /100 WBC (0.0-0.2); Platelet Count 59 K/mm3 (150-400); RDW Coefficient Variation 19.9 % (11.7-14.2); RDW Standard Deviation 83.6 fL (35.1-46.3); Red Blood Cell Count 2.27 M/mm3 (3.80-5.20); White Blood Cell Count 3.36 K/mm3 (4.00-11.30)
[2019-08-25 04:36] LABS: Albumin, Blood 2.2 g/dL (3.4-5.0); Anion Gap 9 mmol/L (6-16); Blood Urea Nitrogen 58 mg/dL (8-24); Bun/Creatinine Ratio 21.8 (12.0-20.0); CO2, Blood 21 mmol/L (21-32); Calcium, Blood 6.6 mg/dL (8.5-10.1); Chloride, Blood 111 mmol/L (98-108); Creatinine, Blood 2.66 mg/dL (0.40-1.00); Glomerular Filtration Rate 18 (60-); Glucose, Blood 151 mg/dL (70-99); Magnesium, Blood 1.9 mg/dL (1.6-2.4); Phosphorus, Blood 4.3 mg/dL (2.5-4.9); Potassium, Blood 4.5 mmol/L (3.5-5.5); Sodium, Blood 141 mmol/L (136-145)
[2019-08-25 04:51] LABS: PCO2 Arterial 29.6 mmHg (35-45); PO2 Arterial 60.8 mmHg (80-100); pH Blood Arterial 7.43 (7.35-7.45)
--- NOTE | 2019-08-25 05:55 | NUR ---
PT REMAINS A&OX4. ON RA W SATS ABOVE 95%. LUNGS CTAB. URINE OUTPUT 240ML OVERNIGHT. BP STABLE WITH MAPS ABOVE 65. NO ISSUES OVERNIGHT. AFEBRILE WILL CONTINUE TO MONITOR UNTIL DAYSHIF REPORT HANDOFF
--- NOTE | 2019-08-25 11:00 | NUR ---
DR. YOUNG AT BEDSIDE. GAVE UPDATE ON PATIENT CONDITION FROM O/N. TOLD PROVIDER THAT WHEN PT GOT UP TO BSC, SHE WAS VERY WEAK AND O2 SAT DROPPED TO 75% ON RA, DENIED DIZZINESS BUT WAS VISIBLY DYSPNEIC. REQUESTED RE-STARTING PAIN MEDICATIONS AT HS, BOWEL MEDS, DRESSING CHANGE ORDERS FOR L HIP, AND D/C ZELAYA PT IS PANCYTOPENIC. ALSO ASKED IF OK TO GIVE ELIQUIS GIVEN THROMBOCYTOPENIA. NOTIFIED PROVIDER THAT DEXAMETHASONE HELD THIS IS PART OF PATIENT'S CHEMO REGIMEN; VERBALIZED AGREEMENT AND STATED OK TO GIVE ELIQUIS. STATUS CHANGED TO PCU. DR. YOUNG STATED SHE WILL WATCH PT'S BP TODAY BEFORE STARTING DILAUDID TONIGHT, WILL ORDER PT/OT AND BOWEL MEDS.
--- NOTE | 2019-08-25 14:04 | NUR ---
GAVE REPORT TO PINEDA NAJERA IN PCU. CALLED PT'S GRANDDAUGHTER ORI, TOLD HER ABOUT TRANSFER TO PCU 5; VERBALIZED UNDERSTANDING.
--- NOTE | 2019-08-25 14:07 | NUR ---
L HIP WOUND MEASURES 2 X 3.2 X 0, UNSTAGEABLE.
--- NOTE | 2019-08-25 14:15 | NUR ---
RECEIVED REPORT FROM YOANNA SURVEILLANCE MANAGER. PT TRANSPORTED TO PCU VIA HOSPITAL BED. APPEARS WEAK AND LETHARGIC, BUT NO S/S ACUTE DISTRESS AT THIS TIME. CALL LIGHT AND POSSESSIONS IN REACH, BED IN LOW AND LOCKED POSITION WITH BED ALARM ACTIVATED.
--- NOTE | 2019-08-25 19:15 | NUR ---
PT RESTING IN BED COMFORTABLY IN NO ACUTE DISTRESS. CAREGIVER AT THE BEDSIDE. DENIES ANY NEEDS AT THIS TIME. CALL LIGHT AND POSSESSIONS IN REACH, BED IN LOW AND LOCKED POSITION, BED ALARM ACTIVATED.
[2019-08-26 03:55] LABS: BASOPHILS ABSOLUTE AUTO 0.01 K/mm3 (0.00-0.23); BASOPHILS PERCENT AUTO 0 % (0-2); EOSINOPHILS ABSOLUTE AUTO 0.06 K/mm3 (0.00-0.68); EOSINOPHILS PERCENT AUTO 2 % (0-6); Hematocrit 27.1 % (33.0-51.0); Hemoglobin 8.1 g/dL (11.5-16.0); Mean Corpuscular HGB 34.3 pg (26.0-34.0); Mean Corpuscular HGB Conc 29.9 g/dL (31.5-36.5); Mean Corpuscular Volume 115 fL (80-100); NRBC ABSOLUTE 0.09 K/mm3 (0.00-0.02); NRBC Auto 2.8 /100 WBC (0.0-0.2); RDW Coefficient Variation 19.9 % (11.7-14.2); RDW Standard Deviation 83.4 fL (35.1-46.3); Red Blood Cell Count 2.36 M/mm3 (3.80-5.20); White Blood Cell Count 3.19 K/mm3 (4.00-11.30)
[2019-08-26 04:01] LABS: IMMATURE GRAN ABSOLUTE AUTO 0.02 K/mm3 (0.00-0.10); IMMATURE GRAN PERCENT AUTO 1 % (0-1); LYMPHOCYTES ABSOLUTE AUTO 1.33 K/mm3 (0.84-5.20); LYMPHOCYTES PERCENT AUTO 42 % (21-46); MONOCYTES ABSOLUTE AUTO 0.24 K/mm3 (0.16-1.47); MONOCYTES PERCENT AUTO 8 % (4-13); NEUTROPHILS ABSOLUTE AUTO 1.53 K/mm3 (1.96-9.15); NEUTROPHILS PERCENT AUTO 48 % (41-73)
[2019-08-26 04:02] LABS: Platelet Count 45 K/mm3 (150-400)
[2019-08-26 04:11] LABS: Albumin, Blood 2.4 g/dL (3.4-5.0); Anion Gap 10 mmol/L (6-16); Blood Urea Nitrogen 68 mg/dL (8-24); Bun/Creatinine Ratio 24.3 (12.0-20.0); CO2, Blood 20 mmol/L (21-32); Calcium, Blood 6.8 mg/dL (8.5-10.1); Chloride, Blood 111 mmol/L (98-108); Glomerular Filtration Rate 17 (60-); Glucose, Blood 93 mg/dL (70-99); Magnesium, Blood 2.1 mg/dL (1.6-2.4); Phosphorus, Blood 4.1 mg/dL (2.5-4.9); Potassium, Blood 4.4 mmol/L (3.5-5.5); Sodium, Blood 141 mmol/L (136-145)
--- NOTE | 2019-08-26 06:08 | NUR ---
SHIFT SUMMARY: VSS THROUGHOUT SHIFT. O2 INCREASED TO 3L VIA NC WHILE SLEEPING FOR O2 OF 91%. A/FIB ON TELE WITH HR IN 80'S. ZELAYA PATENT AND DRAINING CLEAR YELLOW URINE. TOTAL OF 300ML FOR OUTPUT. MINIMAL PO INTAKE DESPITE ENCOURAGEMENT. SALINE LOCKED. LIPS ULCERATED AND BLOODY AT TIMES. PT GIVEN ORAL CARE THIS MORNING. MEPILEX TO L HIP CDI. CRITICAL LOW PLATELET LEVEL THIS MORNING OF 45. HOSPITALIST NOTIFIED. CAREGIVER AND FAMILY AT BEDSIDE.
--- NOTE | 2019-08-26 07:50 | NUR ---
ASSUMED CARE OF PT. RESTING IN BED COMFORTABLY, DAUGHTER AT THE BEDSIDE. DENIES PAIN, DENIES ANY NEEDS AT THIS TIME. CALL LIGHT AND POSSESSIONS IN REACH. WILL CONTINUE TO MONITOR.
--- NOTE | 2019-08-26 09:15 | NUR ---
DR YOUNG IN TO SEE PT. DISCUSSED TX PLAN AND ADDRESSED PT FAMILY CONCERNS. ORDERS RECEIVED.
--- NOTE | 2019-08-26 11:57 | NUR ---
PT'S FAMILY AT BEDSIDE. SEEMED FRUSTRATED WITH CARE. GRANDDAUGHTER EXPRESSED FRUSTRATION WITH COMMUNICATION OF NURSES. NO PATIENT ADVOCATE BUT DISCUSSED WITH CLINICAL COORDINATOR WHO PLANS TO SPEAK WITH THEM ABOUT THINGS WE CAN DO TO IMPROVE CARE EXPERIENCE
--- NOTE | 2019-08-26 14:33 | NUR ---
Family member conversation: Pt's sister, Flora, came by the palliative care office. She has social worker clinical background in medical. She expresses concern about pt's quality of life. She reports that the pt has been consistent in her desire to keep fighting her cancer, however, pt seems to be in extraordinary suffering, per sister. She states that pt is very stoic and not reporting pain to nursing staff. She finally has dilaudid ordered PRN at bedtime, which Flora states will help. Flora is requesting follow up by palliative care to continue to see pt and assist in symptom managment as patient allows. If end of life discussion happens at some point, Jeanie, pt's granddaughter, should be present as she is her alternate decision maker. Jeanie and Flora live in [place]. Pt lives in [place] with a friend that has been staying with her. Pt's suddenly and unexpectedly a couple months ago, so pt is also grieving his loss as well as fighting multiple myeloma. Will follow up with pt.
--- NOTE | 2019-08-26 18:47 | NUR ---
PT SITTING UP IN BED COMFORTABLY AT THIS TIME IN NO ACUTE DISTRESS. DENIES ANY PAIN OR NEEDS AT THIS TIME. CALL LIGHT AND POSSESSIONS IN REACH, FAMILY AT THE BEDSIDE.
[2019-08-27 04:21] LABS: BASOPHILS PERCENT AUTO 0 % (0-2); EOSINOPHILS ABSOLUTE AUTO 0.06 K/mm3 (0.00-0.68); EOSINOPHILS PERCENT AUTO 3 % (0-6); Hematocrit 25.8 % (33.0-51.0); Hemoglobin 7.8 g/dL (11.5-16.0); Mean Corpuscular HGB Conc 30.2 g/dL (31.5-36.5); Mean Corpuscular Volume 116 fL (80-100); NRBC ABSOLUTE 0.04 K/mm3 (0.00-0.02); NRBC Auto 1.7 /100 WBC (0.0-0.2); RDW Coefficient Variation 19.6 % (11.7-14.2); RDW Standard Deviation 83.7 fL (35.1-46.3); Red Blood Cell Count 2.23 M/mm3 (3.80-5.20); White Blood Cell Count 2.33 K/mm3 (4.00-11.30)
[2019-08-27 04:34] LABS: Albumin, Blood 2.2 g/dL (3.4-5.0); Anion Gap 10 mmol/L (6-16); Blood Urea Nitrogen 68 mg/dL (8-24); Bun/Creatinine Ratio 24.5 (12.0-20.0); CO2, Blood 19 mmol/L (21-32); Calcium, Blood 6.8 mg/dL (8.5-10.1); Chloride, Blood 114 mmol/L (98-108); Creatinine, Blood 2.77 mg/dL (0.40-1.00); Glomerular Filtration Rate 18 (60-); Glucose, Blood 93 mg/dL (70-99); Magnesium, Blood 2.2 mg/dL (1.6-2.4); Phosphorus, Blood 3.6 mg/dL (2.5-4.9); Potassium, Blood 4.2 mmol/L (3.5-5.5); Sodium, Blood 143 mmol/L (136-145)
[2019-08-27 04:35] LABS: IMMATURE GRAN ABSOLUTE AUTO 0.01 K/mm3 (0.00-0.10); IMMATURE GRAN PERCENT AUTO 0 % (0-1); LYMPHOCYTES ABSOLUTE AUTO 0.96 K/mm3 (0.84-5.20); LYMPHOCYTES PERCENT AUTO 41 % (21-46); MONOCYTES ABSOLUTE AUTO 0.18 K/mm3 (0.16-1.47); MONOCYTES PERCENT AUTO 8 % (4-13); Mean Platelet Volume 14.1 fL (9.1-12.4); NEUTROPHILS ABSOLUTE AUTO 1.12 K/mm3 (1.96-9.15); NEUTROPHILS PERCENT AUTO 48 % (41-73)
[2019-08-27 04:37] LABS: Platelet Count 35 K/mm3 (150-400)
--- NOTE | 2019-08-27 05:40 | NUR ---
SHIFT SUMMARY: NO SIGNIFICANT CHANGES OVER NIGHT. PT APPEARS TO BE RESTING COMFORTABLY MOST OF SHIFT. VSS. O2 SATS RANGING FROM 90-93% ON RA. PT APPEARS SOB THIS MORNING WITH O2 DROPPING TO 88%. PT PUT ON 2LO2. TELE SHOWS AFIB WITH HR IN 80'S. PT PROVIDED WITH ORAL CARE THROUGHOUT SHIFT AND TURNED Q2. MEPILEX DRESSING TO L HIP CDI. ZELAYA PATENT AND DRAINING WITH 350ML FOR TOTAL OUTPUT. PT QUIET AND WITHDRAWN. COOPERATIVE WITH CARE. PT GIVEN ORAL DILAUDID AT BEDTIME FOR C/O PAIN. REFUSING MAGIC MOUTHWASH.
--- NOTE | 2019-08-27 06:27 | NUR ---
PT SLEEPING AT THIS TIME WITH O2 STABLE ON RA.
--- NOTE | 2019-08-27 17:57 | NUR ---
SHIFT SUMMARY NO ACUTE CHANGES OVER SHIFT, VITALS HAVE REMAINED STABLE. TELEMETRY SHOWS PT TO BE IN A-FIB RATE 90'S -100'S. PT RECEIVED 1 UNIT PRBC'S TODAY W/ A DOSE OF LASIX ASSISTED THROUGH INFUSION. CLEAR YELLOW URINE OUTPUT WAS 575ML TOTAL FOR THE SHIFT. PT ENCOURAGED TO EAT, BUT DOESN'T HAVE MUCH OF AN APPETITE R/T MOUTH PAIN. MAGIC MOUTH WASH GIVEN TO PT PRN WHEN SHE IS WILLING TO ACCEPT IT. WEANED PT DOWN TO 1L 02 VIA NC, ATTEMPTED ROOM AIR, BUT HER O2 SAT'S DROP WHEN SHE FALLS ASLEEP. UPDATED FAMILY AT BEDSIDE, PER PT'S REQUEST.
--- NOTE | 2019-08-27 21:56 | NUR ---
ASSUMED CARE OF PATIENT AT APPROXIMATELY 1905 FROM KARISSA GONZALEZ. PATIENT ALERT AND OREINTED TO SELF, FAMILY, LOCATION AND EVENT. PATIENT FLAT. PATIENT DENIES PAIN, NUMBNESS, TINGLING, DIZZINESS OR NAUSEA. URINARY CATHETER IN PLACE DRAINING TO GRAVITY. TWO FAMILY MEMBERS VISITED FOR ABOUT AN HOUR. AFIB WITH RATE OF 90-100 ON TELE; OXYGEN SATURATION ABOVE 90% ON 1LPM VIA NC. DRESSING TO LEFT HIP CHANGED. PATIENT INCONTINENT OF SMALL BM AT SHIFT CHANGE; ATTENDS IN PLACE. 2X PIV S/L. PATIENT CURRENTLY RESTING IN PLACE; CALL LIGHT IN REACH; BED IN LOWEST POSISTION; BED ALARM ON; WILL CONTINUE TO MONITOR AND ASSESS UNTIL END OF SHIFT.
[2019-08-28 03:50] LABS: BASOPHILS ABSOLUTE AUTO 0.01 K/mm3 (0.00-0.23); BASOPHILS PERCENT AUTO 0 % (0-2); EOSINOPHILS ABSOLUTE AUTO 0.07 K/mm3 (0.00-0.68); EOSINOPHILS PERCENT AUTO 3 % (0-6); Hematocrit 29.3 % (33.0-51.0); Hemoglobin 9.1 g/dL (11.5-16.0); Mean Corpuscular HGB Conc 31.1 g/dL (31.5-36.5); NRBC ABSOLUTE 0.03 K/mm3 (0.00-0.02); NRBC Auto 1.1 /100 WBC (0.0-0.2); RDW Coefficient Variation 23.7 % (11.7-14.2); RDW Standard Deviation 93.5 fL (35.1-46.3); Red Blood Cell Count 2.68 M/mm3 (3.80-5.20); White Blood Cell Count 2.72 K/mm3 (4.00-11.30)
[2019-08-28 04:00] LABS: Mean Corpuscular Volume 109 fL (80-100)
[2019-08-28 04:01] LABS: IMMATURE GRAN ABSOLUTE AUTO 0.02 K/mm3 (0.00-0.10); IMMATURE GRAN PERCENT AUTO 1 % (0-1); LYMPHOCYTES ABSOLUTE AUTO 1.04 K/mm3 (0.84-5.20); LYMPHOCYTES PERCENT AUTO 38 % (21-46); MONOCYTES ABSOLUTE AUTO 0.19 K/mm3 (0.16-1.47); MONOCYTES PERCENT AUTO 7 % (4-13); Mean Platelet Volume 13.6 fL (9.1-12.4); NEUTROPHILS ABSOLUTE AUTO 1.39 K/mm3 (1.96-9.15); NEUTROPHILS PERCENT AUTO 51 % (41-73); Platelet Count 38 K/mm3 (150-400)
[2019-08-28 04:08] LABS: Albumin, Blood 2.2 g/dL (3.4-5.0); Anion Gap 10 mmol/L (6-16); Blood Urea Nitrogen 67 mg/dL (8-24); Bun/Creatinine Ratio 24.3 (12.0-20.0); CO2, Blood 21 mmol/L (21-32); Calcium, Blood 6.9 mg/dL (8.5-10.1); Chloride, Blood 113 mmol/L (98-108); Creatinine, Blood 2.76 mg/dL (0.40-1.00); Glomerular Filtration Rate 18 (60-); Glucose, Blood 102 mg/dL (70-99); Phosphorus, Blood 3.9 mg/dL (2.5-4.9); Potassium, Blood 3.7 mmol/L (3.5-5.5); Sodium, Blood 144 mmol/L (136-145)
--- NOTE | 2019-08-28 18:09 | NUR ---
SHIFT SUMMARY PT ALERT AND ORIENTED. VS STABLE. O2 SATS REMAIN ABOVE 90% ON 2L NC. HR AFIB 90'S. BP STABLE. PT DENIES ANY PAIN. PT REPOSITIONED Q2H. PT UP TO CHAIR FOR MEALS TODAY. DR. POWELL IN TO SEE PT THIS EVENING. WILL CONTINUE TO MONITOR AND REPORT TO ONCOMING RN. CALL LIGHT IN REACH.
--- NOTE | 2019-08-28 19:50 | NUR ---
ASSUMED CARE OF PT. RESTING COMFORTABLY IN NO ACUTE DISTRESS. DENIES ANY NEEDS AT THIS TIME. CALL LIGHT AND POSSESSIONS IN REACH, BED IN LOW AND LOCKED POSITION, BED ALARM ACTIVATED. WILL CONTINUE TO MONITOR.
[2019-08-29 03:46] LABS: Hematocrit 28.2 % (33.0-51.0); Hemoglobin 8.6 g/dL (11.5-16.0)
[2019-08-29 04:04] LABS: Albumin, Blood 2.1 g/dL (3.4-5.0); Anion Gap 8 mmol/L (6-16); Blood Urea Nitrogen 61 mg/dL (8-24); Bun/Creatinine Ratio 24.9 (12.0-20.0); CO2, Blood 22 mmol/L (21-32); Calcium, Blood 6.9 mg/dL (8.5-10.1); Chloride, Blood 113 mmol/L (98-108); Creatinine, Blood 2.45 mg/dL (0.40-1.00); Glomerular Filtration Rate 20 (60-); Glucose, Blood 92 mg/dL (70-99); Magnesium, Blood 1.9 mg/dL (1.6-2.4); Phosphorus, Blood 3.5 mg/dL (2.5-4.9); Potassium, Blood 3.3 mmol/L (3.5-5.5); Sodium, Blood 143 mmol/L (136-145)
--- NOTE | 2019-08-29 05:36 | NUR ---
SPOKE TO DR. LEMUS REGARDING PT'S POTASSIUM LEVEL. ORDERS RECEIVED.
--- NOTE | 2019-08-29 05:50 | NUR ---
PT RESTING IN BED COMFORTABLY, IN NO ACUTE DISTRESS. WAS MONITORED EVERY 1-2 HOURS WITH NEEDS MET. DENIES ANY NEEDS AT THIS TIME. ENCOURAGED TO DRINK FLUIDS AND EAT BITES OF HER JELLO DESIRED THROUGHOUT THE NIGHT. ENCOURAGED USED OF INCENTIVE SPIROMETER AND FLUTTER VALVE, PT DEMONSTRATED PROPER USE OF EQUIPMENT AND TOLERATED WELL. CALL LIGHT AND POSSESSIONS IN REACH, BED IN LOW AND LOCKED POSITION WITH BED ALARM ACTIVATED.
--- NOTE | 2019-08-29 18:22 | NUR ---
SHIFT SUMMARY PT ALERT AND ORIENTED. VS STABLE. HR AFIB 90'S. TELEMETRY DISCONTINUED. PT DENEIS ANY PAIN. PT CHANGED TO MEDICAL STATUS THIS SHIFT. ZELAYA CATHETER PATENT AND DRAINING. PT UP TO CHAIR WITH THERAPY THIS SHIFT AND UP TO BSC. PT DENIES ANY NEEDS. WILL CONTINUE TO MONITOR AND REPORT TO ONCOMING RN.
[2019-08-30 03:51] LABS: BASOPHILS ABSOLUTE AUTO 0.02 K/mm3 (0.00-0.23); BASOPHILS PERCENT AUTO 1 % (0-2); EOSINOPHILS ABSOLUTE AUTO 0.15 K/mm3 (0.00-0.68); EOSINOPHILS PERCENT AUTO 7 % (0-6); Hematocrit 29.4 % (33.0-51.0); Hemoglobin 8.8 g/dL (11.5-16.0); IMMATURE GRAN ABSOLUTE AUTO 0.01 K/mm3 (0.00-0.10); IMMATURE GRAN PERCENT AUTO 0 % (0-1); LYMPHOCYTES ABSOLUTE AUTO 0.89 K/mm3 (0.84-5.20); LYMPHOCYTES PERCENT AUTO 40 % (21-46); MONOCYTES PERCENT AUTO 9 % (4-13); Mean Corpuscular HGB 32.8 pg (26.0-34.0); Mean Corpuscular HGB Conc 29.9 g/dL (31.5-36.5); Mean Corpuscular Volume 110 fL (80-100); Mean Platelet Volume 12.4 fL (9.1-12.4); NEUTROPHILS ABSOLUTE AUTO 0.98 K/mm3 (1.96-9.15); NEUTROPHILS PERCENT AUTO 44 % (41-73); RDW Coefficient Variation 21.3 % (11.7-14.2); RDW Standard Deviation 86.8 fL (35.1-46.3); Red Blood Cell Count 2.68 M/mm3 (3.80-5.20); White Blood Cell Count 2.25 K/mm3 (4.00-11.30)
[2019-08-30 04:00] LABS: Platelet Count 44 K/mm3 (150-400)
[2019-08-30 04:10] LABS: Albumin/Globulin Ratio 0.8 (0.8-1.8); Bilirubin, Total 0.5 mg/dL (0.1-1.0); Calcium, Blood 7.5 mg/dL (8.5-10.1); Creatinine, Blood 2.08 mg/dL (0.40-1.00); Globulin, Blood 2.4 g/dL (2.2-4.0); Magnesium, Blood 1.9 mg/dL (1.6-2.4); Potassium, Blood 3.5 mmol/L (3.5-5.5); Total Protein, Blood 4.4 g/dL (6.4-8.2)
--- NOTE | 2019-08-30 05:34 | NUR ---
SHIFT SUMMARY PT MEDICAL NO TELE STATUS. A&O X4, CALM & COOPERATIVE W/ FLAT AFFECT. VSS. LUNG SOUNDS DIM T/O. SPO2 > 92% ON 2L NC TITRATED TO 1L NC THIS SHIFT. PT'S MOUTH CONTINUES TO BE SORE/BLOODY, ORAL CARE DONE BY PATIENT W/ ASSISTANCE. DRESSING IN PLACE TO L HIP ULCER. PT ABLE TO ASSIST W/ REPOSITIONING IN BED W/ 1 PERSON MOD ASSIST. ZELAYA CATH PATENT AND DRAINING. WILL CONTINUE TO MONITOR AND PROVIDE CARE UNTIL REPORT OFF TO DAY SHIFT RN.
[2019-08-30] MEDS ORDERED: LABE100 PO (16:44)
[2019-08-30] MEDS ORDERED: AMLO10 PO (16:44)
[2019-08-30] MEDS ORDERED: Bumetanide1 MG PO (16:46)
[2019-08-30] MEDS ORDERED: ACET325 PO (16:46)
[2019-08-30] MEDS ORDERED: Calcitonin-Sal3.7 ML (16:47)
--- NOTE | 2019-08-30 18:09 | NUR ---
PT ALERT AND ORIENTED THIS SHIFT. PT TRANSFERED TO THE MEDICAL FLOOR THIS AM. PT BEDBOUND. ZELAYA CATHETER REMOVED THIS SHIFT TO DETERMINE IF PT CAN VOID INDEPENDENTLY. PT HAS HAD VISITORS IN THE ROOM THROUGHOUT THIS SHIFT. PT SITTING UP EATING DINNER.
--- NOTE | 2019-08-31 02:35 | NUR ---
PT WAS NOT ABLE TO VOID FOR >6 HRS AFTER F/C REMOVED. BLADDER SCAN SHOWED 354CC. STRAIGHT CATH PER PROTOCOL: 250CC URINE OUT. ENCOURAGED PO FLUID INTAKE. WILL MONITOR FOR VOID AND PLAN TO REPEAT BLADDER SCAN IN 6 HRS IF NEEDED.
[2019-08-31 05:39] LABS: Anion Gap 9 mmol/L (6-16); Blood Urea Nitrogen 49 mg/dL (8-24); Bun/Creatinine Ratio 26.3 (12.0-20.0); CO2, Blood 21 mmol/L (21-32); Calcium, Blood 7.7 mg/dL (8.5-10.1); Chloride, Blood 111 mmol/L (98-108); Creatinine, Blood 1.86 mg/dL (0.40-1.00); Glomerular Filtration Rate 28 (60-); Glucose, Blood 105 mg/dL (70-99); Magnesium, Blood 1.6 mg/dL (1.6-2.4); Phosphorus, Blood 2.7 mg/dL (2.5-4.9); Potassium, Blood 3.5 mmol/L (3.5-5.5); Sodium, Blood 141 mmol/L (136-145)
--- NOTE | 2019-08-31 07:12 | NUR ---
DR. MARION IN TO SEE PT THIS AM. ORDERED ACYCLOVIR AND VIT B6 FOR PT'S ORAL THRUSH. PT HAS NOT BEEN WEARING DENTURES AND HAS HAD POOR PO INTAKE DUE TO MOUGH PAIN. NEW ORDERS NOTED.
--- NOTE | 2019-08-31 07:15 | NUR ---
SHIFT SUMMARY: VSS. PT A/O, SOMEWHAT DIFFICULT TO UNDERSTAND DUE TO EDENTULOUS STATE- SPEECH IS MUMBLED. USES CALL BUTTON APPROPRIATELY. DENIES PAIN. SLEPT MINIMALLY. NO ACUTE CHANGES OVERNIGHT.
--- NOTE | 2019-08-31 19:13 | NUR ---
SHIFT SUMMARY PT HAD NO ACUTE CHANGES THIS SHIFT. PT HAS DECLINED PAIN MEDICATION THIS SHIFT. PT HAS A DRESSING ON HER LEFT HIP THTA WAS CHANGED PREIOVS SHIFT. PT HAS MINIMAL APETITE AND HAS AN INTAKE OF LESS THEN 25% DR. RAJAN UPDATED. IV SITE LOSS AND DR. RAJAN PLACED ORDER FOR N0 ACCESS. PT BLADDER SCANDED 435CC, STRAIGHT CATH 500CC OUT. PT HAS BEEN INCONTINENT OF STOOL THIS SHIFT. CALL LIGHT WITH IN REACH WILL COUNTINUE TO MONITOR AND REPORT TO NOC RN.
--- NOTE | 2019-08-31 19:24 | NUR ---
STRAIGHT CATHETER PT HAD TO BE STRAIGHT CATHED THIS EVENING DUE TO RETENTION OF OVER 300ML IN BLADDER. THIS RN WITH ASSISTANCE FROM DANIA MERCADO, DRAINED 500ML OF URINE FROM PT'S BLADDER VIA STRAIGHT CATH. THIS RN CALLED AND LEFT MESSAGE FOR JUSTIN BARLOW FOR DECISION OF WHAT TO DO WITH RETENTION-WHETHER WOULD LIKE TO HAVE AN INDWELLING CATHETER PLACED OR CONTINUING STRAIGHT CATH.
--- NOTE | 2019-08-31 22:50 | NUR ---
RECEIVED RETURN CALL FROM JUSTIN BARLOW REGARDING PT'S NEED FOR STRAIGHT CATH. RECEIVED INSTRUCTIONS TO DISCUSS WITH PT HOW SHE WOULD LIKE TO PROCEED- EITHER CONT BLADDER SCAN AND STRAIGHT CATH IF INDICATED OR PLACE A ZELAYA AND BEGIN BLADDER TRAINING IMMEDIATELY. PT STATES SHE WOULD LIKE TO CONT WITH EVERY 6 HOUR BLADDER SCAN AND STRAIGHT CATH FOR NOW. ENCOURAGED PO INTAKE AND WILL CONTINUE TO ENCOURAGE PT TO TRY TO VOID IN BED GALLO.
[2019-09-01 05:25] LABS: BASOPHILS ABSOLUTE AUTO 0.01 K/mm3 (0.00-0.23); BASOPHILS PERCENT AUTO 0 % (0-2); EOSINOPHILS ABSOLUTE AUTO 0.24 K/mm3 (0.00-0.68); EOSINOPHILS PERCENT AUTO 10 % (0-6); Hemoglobin 8.7 g/dL (11.5-16.0); IMMATURE GRAN ABSOLUTE AUTO 0.01 K/mm3 (0.00-0.10); IMMATURE GRAN PERCENT AUTO 0 % (0-1); LYMPHOCYTES ABSOLUTE AUTO 0.75 K/mm3 (0.84-5.20); LYMPHOCYTES PERCENT AUTO 32 % (21-46); MONOCYTES ABSOLUTE AUTO 0.16 K/mm3 (0.16-1.47); MONOCYTES PERCENT AUTO 7 % (4-13); Mean Corpuscular HGB 33.6 pg (26.0-34.0); Mean Corpuscular HGB Conc 31.1 g/dL (31.5-36.5); Mean Corpuscular Volume 108 fL (80-100); Mean Platelet Volume 11.6 fL (9.1-12.4); NEUTROPHILS ABSOLUTE AUTO 1.15 K/mm3 (1.96-9.15); NEUTROPHILS PERCENT AUTO 50 % (41-73); Platelet Count 56 K/mm3 (150-400); RDW Coefficient Variation 19.8 % (11.7-14.2); Red Blood Cell Count 2.59 M/mm3 (3.80-5.20); White Blood Cell Count 2.32 K/mm3 (4.00-11.30)
--- NOTE | 2019-09-01 05:39 | NUR ---
SHIFT SUMMARY: AFEB. A/OX3. QUIET, FLAT AFFECT, WITHDRAWN. FLUIDS ENCOURAGED. PT REPORTING MOUTH AND THROAT PAIN WORSE TONIGHT. TYLENOL AND LIDOCAINE MOUTH WASH ADMINISTERED. PT STATES HELPS PAIN SOME. SLEEPING VERY MINIMALLY. HAS NOT VOIDED TONIGHT. NEXT BLADDER SCAN DUE AT ABOUT 0630. PT DENIES BLADDER FULLNESS OR BLADDER PAIN.
[2019-09-01 05:54] LABS: Albumin, Blood 1.9 g/dL (3.4-5.0); Albumin/Globulin Ratio 0.8 (0.8-1.8); Bilirubin, Total 0.5 mg/dL (0.1-1.0); Bun/Creatinine Ratio 26.5 (12.0-20.0); Calcium, Blood 7.7 mg/dL (8.5-10.1); Creatinine, Blood 1.62 mg/dL (0.40-1.00); Globulin, Blood 2.4 g/dL (2.2-4.0); Magnesium, Blood 1.7 mg/dL (1.6-2.4); Potassium, Blood 3.4 mmol/L (3.5-5.5); Total Protein, Blood 4.3 g/dL (6.4-8.2)
--- NOTE | 2019-09-01 06:44 | NUR ---
STRAIGHT CATH. PT HAS NOT VOIDED ON HER OWN TONIGHT. BLADDER SCAN SHOWED 333 CC'S. STRAIGHT CATH RESULTED IN 275CC'S URINE OUT.
--- NOTE | 2019-09-01 17:27 | NUR ---
SHIFT SUMMARY NO ACUTE CHANGES TODAY. PATIENT NOT EATING OR DRINKING MUCH. CONT TO REPORT MOUTH AND THROAT PAIN BUT PER LITO RN SHE REFUSED THE LIDOCAINE THIS AM. 1 WET INCONTINENT ATTENDS TODAY. INCONTINENT OF STOOL MULTIPLE TIMES TODAY. BLADDER SCAN @ 1745 <200.
--- NOTE | 2019-09-02 04:49 | NUR ---
SHIFT SUMMARY PATIENT HAD NO ACUTE CHANGES OBSERVED. AXOX 3 AND BEDREST. TAKES MEDICATION WHOLE WITH APPLE SAUCE OR PUDDING. VSS/AFBERILE. DENIES PAIN, SOB, AND N/V. NO IV ACCESS. DAUGHTER PRESENT IN ROOM T/O THE SHIFT. CALL LIGHT IN REACH. BED IN LOWEST POSITION. WILL CONTINUE TO MONITOR UNTIL DAY SHIFT NURSE ASSUMES CARE.
[2019-09-02 05:48] LABS: Hematocrit 30.4 % (33.0-51.0); Hemoglobin 9.5 g/dL (11.5-16.0); Mean Corpuscular HGB 33.6 pg (26.0-34.0); Mean Corpuscular HGB Conc 31.3 g/dL (31.5-36.5); Mean Corpuscular Volume 107 fL (80-100); Mean Platelet Volume 12.6 fL (9.1-12.4); Platelet Count 80 K/mm3 (150-400); RDW Coefficient Variation 19.5 % (11.7-14.2); RDW Standard Deviation 77.9 fL (35.1-46.3); Red Blood Cell Count 2.83 M/mm3 (3.80-5.20)
[2019-09-02 06:09] LABS: Magnesium, Blood 1.9 mg/dL (1.6-2.4)
[2019-09-02 06:14] LABS: Albumin, Blood 2.1 g/dL (3.4-5.0); Anion Gap 12 mmol/L (6-16); Blood Urea Nitrogen 48 mg/dL (8-24); CO2, Blood 18 mmol/L (21-32); Calcium, Blood 7.9 mg/dL (8.5-10.1); Chloride, Blood 110 mmol/L (98-108); Creatinine, Blood 1.78 mg/dL (0.40-1.00); Glomerular Filtration Rate 29 (60-); Glucose, Blood 131 mg/dL (70-99); Phosphorus, Blood 4.1 mg/dL (2.5-4.9); Potassium, Blood 4.3 mmol/L (3.5-5.5); Sodium, Blood 140 mmol/L (136-145)
[2019-09-02 06:22] LABS: BAND PERCENT MAN 3 % (0-8); BASOPHILS ABSOLUTE MAN 0.02 K/mm3 (0.00-0.23); BASOPHILS PERCENT MAN 1 % (0-2); EOSINOPHILS PERCENT MAN 0 % (0-6); LYMPHOCYTES ABSOLUTE MAN 0.59 K/mm3 (0.84-5.20); LYMPHOCYTES PERCENT MAN 23 % (21-46); MONOCYTES ABSOLUTE MAN 0.13 K/mm3 (0.16-1.47); MONOCYTES PERCENT MAN 5 % (4-13); NEUTROPHILS ABSOLUTE MAN 1.84 K/mm3 (1.96-9.15); SEG NEUTROPHILS PERCENT MAN 68 % (41-73); TOTAL CELLS COUNTED 100
--- NOTE | 2019-09-02 16:12 | NUR ---
SHIFT SUMMARY PT SLEEPING DURING SHIFT REPORT, WITH FAMILY IN CHAIR AT . DR SHAE IN TO SEE PT EARLY. NEW ORDERS RECEIVED. PT NOT EATING OR DRINKING MUCH AND THEREFORE STARTED ON CLINIMIX. NEW IV PLACED BY BHANU NAJERA, AND REMAINS PATENT TO PRESENT. PT DID EAT A SM AMT OF BREAKFAST, BUT DECLINED LUNCH. FAMILY TO RM AFTER LUNCH, WANTING PT TO EAT BUT PT IS VERY TIRED AND WEAK. INCONTINENT OF BOWEL AND BLADDER. LUNGS T/O COARSE IN THE BASES. DENIED FURTHER NEEDS. PT RESTING QUIETLY AGAIN WITH EYES CLOSED. CALL LT IN REACH.
--- NOTE | 2019-09-03 00:08 | NUR ---
RESTING. CLINIMIX INFUSING AT 50 mL/HR. PO DILAUDID FOR MOUTH PAIN. DAUGHTER IN ROOM STAYING THE NIGHT. CALL LIGHT IN REACH.
--- NOTE | 2019-09-03 04:00 | NUR ---
SHIFT SUMMARY PATIENT HAD NO ACUTE CHANGES OBSERVED THIS SHIFT. AXO X3 AND BEDREST. REPORTED GENERAL PAIN AND RECEIVED PO DILAUDID 2 MG PER EMAR. PIV REMAINS INTACT. CLINIMIX INFUSING AT 50 mL/HR. DENIES SOB AND N/V. VSS/AFEBRILE. PATIENT ABLE TO REST MOST OF THE SHIFT. DAUGHTER STAYED THE NIGHT IN THE ROOM. CALL LIGHT IN REACH. BED IN LOWEST POSITION. WILL CONTINUE TO MONITOR UNTIL DAY SHIFT NURSE ASSUMES CARE.
[2019-09-03 05:16] LABS: BASOPHILS ABSOLUTE AUTO 0.01 K/mm3 (0.00-0.23); BASOPHILS PERCENT AUTO 0 % (0-2); EOSINOPHILS ABSOLUTE AUTO 0.03 K/mm3 (0.00-0.68); EOSINOPHILS PERCENT AUTO 1 % (0-6); IMMATURE GRAN ABSOLUTE AUTO 0.03 K/mm3 (0.00-0.10); IMMATURE GRAN PERCENT AUTO 1 % (0-1); LYMPHOCYTES ABSOLUTE AUTO 0.92 K/mm3 (0.84-5.20); LYMPHOCYTES PERCENT AUTO 32 % (21-46); MONOCYTES ABSOLUTE AUTO 0.26 K/mm3 (0.16-1.47); MONOCYTES PERCENT AUTO 9 % (4-13); Mean Corpuscular HGB 33.5 pg (26.0-34.0); Mean Corpuscular Volume 108 fL (80-100); Mean Platelet Volume 12.6 fL (9.1-12.4); NEUTROPHILS ABSOLUTE AUTO 1.62 K/mm3 (1.96-9.15); NEUTROPHILS PERCENT AUTO 57 % (41-73); Platelet Count 96 K/mm3 (150-400); RDW Coefficient Variation 19.7 % (11.7-14.2); RDW Standard Deviation 77.4 fL (35.1-46.3); Red Blood Cell Count 2.69 M/mm3 (3.80-5.20); White Blood Cell Count 2.87 K/mm3 (4.00-11.30)
[2019-09-03 05:33] LABS: Albumin, Blood 2.1 g/dL (3.4-5.0); Anion Gap 11 mmol/L (6-16); Blood Urea Nitrogen 59 mg/dL (8-24); Bun/Creatinine Ratio 32.8 (12.0-20.0); CO2, Blood 19 mmol/L (21-32); Calcium, Blood 7.7 mg/dL (8.5-10.1); Chloride, Blood 108 mmol/L (98-108); Glomerular Filtration Rate 29 (60-); Glucose, Blood 137 mg/dL (70-99); Potassium, Blood 4.1 mmol/L (3.5-5.5); Sodium, Blood 138 mmol/L (136-145)
--- NOTE | 2019-09-03 09:30 | NUR ---
PALLIATIVE CARE VISIT: SECOND REFERRAL RECEIVED PER DR SHEA/DR RAJAN'S REQUEST TO REVIEW HOSPICE AND COMFORT CARE WITH PT & FAMILY. PT APPEARS UNCOMFORTABLE, SL DYSPNIC, IN BED. SUPINE WITH HOB UP. ORI ADAMS AT BEDSIDE AND MOVING ABOUT THE ROOM, HELPING BONILLA. PT HAS DIFFICULTY TALKING AND SWALLOWING DUE TO OBSERVED MOUTH PAIN. SHE REPORTS SHE DOES NOT WANT TO USE THE MAGIC MOUTHWASH ADMINISTERED YESTERDAY DUE TO HORRIBLE REACTION TO IT AND FEELING LIKE IT BURNED ALL THE WAY DOWN, FEELING LIKE SHE COULD NOT BREATH AFTERWARDS. SHE REPORTS DISCOMFORT AND FEELING IN DISTRESS FOR MORE THAN AN HOUR AFTER USING IT. ANGIE CONFIRMS THAT WHEN SHE CAME TO THE ROOM SHE FOUND PT IN DISTRESS. WE CONFIRMED INGREDIENTS OF MAGIC MOUTHWASH AND ANGIE WILL GET RECIPE FOR HOME MAGIG MOUTH WASH FROM [facility] WHEN THEY OPEN. I SPOKE TO OUR PHARMACIST, DR RAJAN AND RN RE: PLAN TO HAVE PHARMACY DISPENSE REPLICA OF WHAT WAS USED AT HOME THAT PROVIDED RELIEF OF MOUTH PAIN. PT EXPRESSED THAT SHE WANTS TO GO HOME. REVIEWED HOME GOING OPTIONS AND PT REITERATES THAT SHE JUST WANTS TO BE HOME, DOES NOT WANT TO RETURN TO THE HOSPITAL FOR ANY REASON. SHE IS AWARE THAT HER CONDITION WILL DETERIORATE FURTHER WITHOUT TREATMENT OF KIDNEY FAILURE AND OTHER ISSUES. 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 SHE WANTS THE GOAL OF CARE TO BE COMFORT AT THIS TIME. WE REVIEWED COMFORT CARE HERE IN THE HOSPITAL AND TRANSISITON TO HOSPICE IN THE HOME SETTING CRISTOPHER. PT'S ANGIE DOES NOT LIVE LOCALLY AND PT DOES NOT HAVE FAMILY IN HOME. CM NOTES REVIEWED. THERE MAY BE A LIVE-IN FRIEND/CG AVAILABLE IN THE HOME BUT I HAVE NOT CONFIRMED THAT. PT AND ANGIE WOULD LIKE TO HAVE SOME TIME TO PROCESS AND DISCUSS PRIVATELY. THEY WILL REQUEST A RETURN VISIT WHEN THEY HAVE THE EXACT "RECIPE" OF HER HOME MOUTHWASH FOR THRUSH AND ORAL/THROAT PAIN. PT STATES PAIN MEDICATION HAS NOT HELPED HER MOUTH PAIN. SHE DENIES PAIN ELSEWHERE IN THE BODY. SHE LOOKS PROFOUNDLY FATIGUED, PALE, WEAK AND FRUSTRATED UPON ENTERING THE ROOM. FULL REPORT GIVEN TO PT'S RN AND AFTER MY VISIT. PLAN TO RETURN LATER TODAY TO FURTHER DISCUSS ADVANCED CARE PLANNING, COMFORT CARE AND HOSPICE.
--- NOTE | 2019-09-03 10:12 | NUR ---
Pt had a smear and it was dry, in the front, looked like she wasnt cleaned well before. Family said you need to be very careful before i started anything, said to me you need to check her, before i left the room or finished vitals with her. I repositioned her, posessions/ water, potty was taken care of, but family wouldnt stop complaining how I wasn't doing it well enough, berfore i ever stopped. are you comfortable, how are you feeling, do you need water, then at the end i was going to ask can i change you. family was frustrated with me I felt bossed around by family member, I stuck to the 4 P's curtiously
--- NOTE | 2019-09-03 12:46 | NUR ---
Palliative Care visit: Second visit this am. Granddaughter had gone to OP pharmacy and obtained exact info on magic mouthwash used at home that was helpful. After visit, I brought this to Dr Orona and to our pharmacy for filling. Discussed visit with RN and with . Recommended to pt and two granddaughters at bedside that pt try oral analgesic ordered recently to alleviate mouth pain also. Discussed comfort care, hospice, home going and logistics of care at home with pt and family in detail. Second granddaughter now present, has some A R SPECIALIST experience and would like to help take care of her grandmother but has small children she would need help with. Granddaus will talk with other family members to help get caregiving in place, in addition to pt's friend that lives in her home. Hospice services, possible frequency of visits, use of PT/OT for caregiver training, PROCESS CHEMIST and personal/bath aide discussed. Pt has previously planned to go home with [facility] and would prefer to contact [facility] hospice unless they were not available in a timely manner. Pt and family understood that her chemo tx was not curative but only to prolong her life and hopefully lesson her s/s, improve quality of life. Pt states that has not been her experience and all feel she has suffered enough at this point and that she does not want to pursue any prolongation of life any longer. She wants to be able to eat for pleasure without pain and to be cared for in her own home. Discussed in detail comfort care in hospital and pt/family later called me to tell me they would indeed like to start comfort care now. Reported to and orders obtained/entered with bedside nurses input on current orders that are helpful and that they would like to maintain. Will monitor for s/s management, support to pt/family and coordination with Care managers for dc planning. VM left for them re: dc plan of choice as soon as it can be arranged.
--- NOTE | 2019-09-03 14:34 | NUR ---
SHIFT SUMMARY PT RESTING QUIETLY AGAIN TODAY, WITH VISITORS IN . PT CONTINUES TO REFUSE TO EAT OR DRINK. DR SHEA IN TO SEE PT THIS AM. NEW ORDERS RECEIVED. PT'S GRANDAUGHTER IN AGAIN THRU THE NIGHT AND THIS AM; REQUEST TO DISCUSS OPTIONS WITH PALLATIVE CARE AND TAKING PT HOME. PALLATIVE CARE NOTIFIED AND CAME TO TO TALK WITH FAMILY. MORE FAMILY TO DAY WENT ON. AFTER DISCUSSION, FAMILY REQUESTED PT TO BE MADE COMFORT CARE. PALLATIVE CARE RN NOTIFIED AND PLACED ORDERS PER DR RAJAN. IVF'S D/C'D AND IV SL. DR RAJAN NOTIFIED THIS AM FOR PO OXYCODONE, PER FAMILY REQUEST. PT HAS CONTINUED TO DENY PAIN AND HAS BEEN RESTING QUIETLY. USED BEDPAN A COUPLE OF TIMES; VOIDING 25cc. NO FURTHER URINE OUTPUT TODAY, EVEN AFTER BUMEX GIVEN THIS AM. PT DENIED FURTHER NEEDS AT THIS TIME. FAMILY AT BS. CALL LT IN REACH.
--- NOTE | 2019-09-03 15:58 | NUR ---
Pal Care Note: Follow up call to RN to review recent changes noted in eMAR. Several rxs were discontinued, that may be needed to treat s/s to pt's comfort prn. Roxicodone 5 mg was given x1 today and was effective for severe mouth pain. This appears to be discontinued. Roxanol intended for judicious use, prn breakthru pain or to be used in event that pt loses abilty to swallow well/safely. RN to review medications with Dr. Egan to f/u for s/s management and support to pt/family daily while here waiting for d/c home with hospice.
--- NOTE | 2019-09-04 05:11 | NUR ---
HAND BENDER SUMMARY NO ACUTE CHANGES. PT AAOX3, ABLE TO MAKE NEEDS KNOWN. PT ON COMFORT CARE. PT REQUESTED PO DILAUDID AT BEDTIME AND REPORTS BEING COMFORTABLE SINCE. PT HAS SLEPT THROUGH MOST OF THE NIGHT. CALLS FOR ASSISTANCE WITH BEDPAN NEEDED. PT CONTINUES TO DENY USE OF MAGIC MOUTHWASH FOR MOUTH PAIN DUE TO NUMBING EFFECT OF MOUTH. WILL CONTINUE TO MONITOR.
--- NOTE | 2019-09-04 07:30 | NUR ---
PATIENT AWAKE AND DENIES ANY NEEDS AT THIS TIME. REPORTS PAIN IS WELL CONTROLLED.
--- NOTE | 2019-09-04 09:46 | NUR ---
PATIENT'S SISTER AT BEDSIDE REQUESTING TO SPEAK WITH PALLIATIVE CARE. MELANY FROM PALLIATIVE CARE CONTACTED AND WILL BE UP TO TALK WITH PATIENT AND FAMILY. PATIENT CONTINUES TO DENY ANY PAIN. VERY LITTLE PO INTAKE WITH BREAKFAST. ENCOURAGED PATIENT TO DRINK ENSURE CLEAR. REPORTS VERY POOR APPETITE. TOOK PILLS WHOLE IN APPLESAUCE WITHOUT ANY PROBLEMS.
--- NOTE | 2019-09-04 10:35 | NUR ---
Pt visit this AM. Pt resting in bed and reports 6/10 mouth pain. Pt's sister at bedside. Power Operator Maria Isabel also present during visit. Answered questions and discussed concerns. Plan is for Pt to discharge with [facility] with Pt and family requesting same day admission to hospice once dishcarged from hospital. Pt is requesting to stay in the hospital until or Wednesday in order to set up family and caregiving. No other concerns reported at this time. Spoke with bedside RN Theresa discussed case and reported Pt's pain. Palliative Care will remain available.
--- NOTE | 2019-09-04 12:32 | NUR ---
SISTER AT BEDSIDE. PATIENT REPORTS 01/30 IN MOUTH. REFUSING MAGIC MOUTHWASH. MEDICATED WITH OXYCODONE AND TYLENOL. PATIENT DENIES ANY FURTHER NEEDS AT THIS TIME. PERSONNEL OFFICER AT BEDSIDE ABOUT TO COMPLETE A BEDBATH.
--- NOTE | 2019-09-04 12:33 | NUR ---
PATIENT SLEEPING AT THIS TIME. TRAY BROUGHT IN AND PATIENT WOKE, BUT DOES NOT WANT TO EAT AND FALLS QUICKLY BACK TO SLEEP.
--- NOTE | 2019-09-04 15:24 | NUR ---
PATIENT SLEEPING AT THIS TIME.
--- NOTE | 2019-09-04 18:35 | NUR ---
PATIENT SLEEPING AT THIS TIME. CALL LIGHT WITHIN REACH.
--- NOTE | 2019-09-05 04:49 | NUR ---
DRAFTER PLUMBING SUMMARY NO ACUTE CHANGES THIS SHIFT. PT REMAINS ON COMFORT CARE. GIVEN PO DILAUDID AT HS TO HELP WITH SLEEP AND MOUTH PAIN. PT DENIES FREQUENT REPOSITIONING. PT REPORTS BEING COMFORTABLE AND HAS BEEN RESTING THE MAJORITY OF THE SHIFT. WILL CONTINUE TO MONITOR.
--- NOTE | 2019-09-05 09:26 | NUR ---
PATIENT REPORTING 6/10 MOUTH PAIN. REFUSING MAGIC MOUTH WASH. MEDICATING WITH OXYCODONE TO TREAT PAIN. PATIENT IS A/OX4, VERY WITHDRAWN. NO FAMILY AT BEDSIDE CURRENTLY. ASSISTED WITH REPOSITIONING FOR BREAKFAST. APPETITE REMAINS VERY POOR.
--- NOTE | 2019-09-05 10:19 | NUR ---
PATIENT TAKEN OFF OF BEDPAN AND ATTENDS AND PARTIAL LINENS CHANGED. PATIENT GIVEN AND ENSURE THAT HAD BEEN IN THE FREEZER. THE COLD FLUIDS SOOTHE HER MOUTH PAIN. CALL LIGHT WITHIN REACH. PATIENT DENIES ANY FURTHER QUESTIONS OR CONCERNS.
--- NOTE | 2019-09-05 12:40 | NUR ---
PATIENT DENIES PAIN UNLESS YOU ASK HER SPECIFICALLY ASK HER THE PAIN LEVEL IN HER MOUTH. MEDICATING WITH TYLENOL AND OXYCODONE WITH STATED RELIEF. PATIENT CONTINUES TO CALL APPROPRIATELY.
--- NOTE | 2019-09-05 15:15 | NUR ---
PATIENT SLEEPING AT THIS TIME. NO A/S OF PAIN ASSESSED. CALL LIGHT WITHIN REACH.
--- NOTE | 2019-09-05 17:51 | NUR ---
PATIENT RESTING COMFORTABLY. REFUSING NYSTATIN SWISH AND SWALLOW. DENIES NEEDS FOR PAIN MEDICATION AT THIS TIME. ATTENDS CHECKED AND PATIENT REMAINS DRY. CALL LIGHT WITHIN REACH.
--- NOTE | 2019-09-05 17:53 | NUR ---
PATIENT SLEEPING AT THIS TIME. CALL LIGHT WITHIN REACH
--- NOTE | 2019-09-05 19:30 | NUR ---
BONILLA IS LAYING IN BED, STATES SHE IS DOING OK. WILL LIKE PAIN MED WHEN IT IS DUE. ALSO THE NYSTATIN LIQUID, STATE SHE HAS SORES THAT ARE PAINFUL IN HER MOUTH. DENIES ANY POSITION CHANGES, OR NEEDS AT THIS TIME. CALL LIGHT IN REACH.
--- NOTE | 2019-09-06 00:30 | NUR ---
BONILLA IS SLEEPING COMFORTABLY IN BED, CALL LIGHT IN REACH, NO SIGNS OF DISTRESS NOTED.
--- NOTE | 2019-09-06 02:00 | NUR ---
BONILLA IS AWAKE, DENIES ANY PAIN OR DISCOMFORT. STATES SHE IS DOING OK. CALL LIGHT IN REACH.
--- NOTE | 2019-09-06 05:30 | NUR ---
SHIFT SUMMARY: BONILLA VS HAVE REMAINED STABLE. PAIN MEDS WERE ONLY GIVEN X1 AT START OF SHIFT, SHE REPORTS NO PAIN THIS AM. WENT TO SLEEP AFTER PAIN MED AND SLEPT THROUGHOUT THE NIGHT. ATTENDS REMAINED DRY. PATIENT ABLE TO REPOSITION SELF THROUGHOUT THE NIGHT. NO ACUTE CHANGES OCCURRED THIS SHIFT. CALL LIGHT REMAINED IN REACH AND USED APPROPRIATLY.
--- NOTE | 2019-09-06 15:30 | NUR ---
SHIFT SUMMARY NO ACUTE CHANGES TO PRESENT THIS SHIFT. PT RESTING QUIETLY AT START OF SHIFT, EYES CLOSED. PT STILL SLEEPING WHEN RIBBON HANKING MACHINE OPERATOR TOOK BREAKFAST IN; PT LATER WOKE, EATING SOME OF BREAKFAST. DENIED PAIN, DECLINED NEEDING ANY PAIN MEDICATION. CALLED SEVERAL TIMES FOR BEDPAN, VOIDING ONLY 5-10cc AT MOST. PER REPORT, PT WAITING ON FAMILY IN ORDER TO GO HOME ON HOSPICE. DR FREEMAN IN TO SEE PT. NO NEW ORDERS. CALL LT IN REACH.
--- NOTE | 2019-09-06 19:15 | NUR ---
BONILLA IS RESTING IN BED. JUST FINISHED HAVING A BOWEL MOVEMENT. DENIES ANY PAIN OR DISCOMFORT AT THIS TIME. DINNER TRAY IN THE ROOM BUT THE PATIENTS APPETITE IS POOR, ONLY A FEW BITES HAVE BEEN TAKEN. ENCOURAGED HER TO TRY AND EAT MORE. CALL LIGHT IN ROOM.
--- NOTE | 2019-09-06 21:19 | NUR ---
FAMILY JUST LEFT THE ROOM, PLACED PATIENT ONTO THE BED GALLO PER HER REQUEST. ATTENDS IS DRY. MEDICATED FOR PAIN, NIGHT MEDS GIVEN. CALL LIGHT GIVEN FOR HER TO CALL WHEN SHE IS DONE.
--- NOTE | 2019-09-07 | NUR ---
PATIENT IS RESTING. WITH NO ACUTE CHANGES OR CONCERNS. NO DISCOMFORT NOTED.
--- NOTE | 2019-09-07 05:15 | NUR ---
SHIFT SUMMARY: BONILLA HAD FAMILY VISITING [facility], THEY STAYED FOR A SHORT BIT THEN WENT HOME. PLAN IS FOR HER TO DISCHARGE HOME TODAY WITH HOSPICE. DAUGHTER SAID SHE WILL BE READY FOR HER. PAIN WAS CONTROLED WITH DILAUDID, WHICH WAS GIVEN ONCE AND SHE DENIED PAIN REST OF SHIFT. SHE SLEPT THROUGHOUT THE NIGHT WITH NO SIGNS OF DISTRESS OR DISCOMFORT. NO ACUTE CHANGES TO NOTE, WILL REPORT TO DAY SHIFT.
[2019-09-07] MEDS ORDERED: Ativan1 MG PO (09:34)
--- NOTE | 2019-09-07 10:09 | NUR ---
1000 PT TO DISCHARGE HOME ON HOSPICE. DC INSTRUCTIONS WENT OVER WITH DAUGHTER. CAMMYE ASSISTED IN GETTING PT READY FOR HOME. LEFT VIA GURNEY .
--- NOTE | 2019-09-07 10:09 | NUR ---
pt sleeping , dc orders in
== END 2019-09-07 09:57 | disposition hospice, home (50) | DRG 640 ==
LOC: ER 23:47 → ICUE 08-22 02:20 → ICUW 08-22 02:20 → ICUE 08-22 02:25 → PCU 08-25 14:18 → MEDS 08-30 09:28
PROVIDERS: Emergency Medicine; Internal Medicine; Internal Medicine Critical Care Medicine; Internal Medicine Nephrology; Internal Medicine Pulmonary Disease; ADMIT Family Medicine
PROC: 5A09357 Assistance with Respiratory Ventilation, Less than 24 Consecutive Hours, Continuous Positive Airway Pressure (ICD-10-PCS; principal; 2019-08-23)
DX: E86.0 Dehydration (principal); D61.810 Antineoplastic chemotherapy induced pancytopenia; J96.01 Acute respiratory failure with hypoxia; I21.A1 Myocardial infarction type 2; B37.0 Candidal stomatitis; I48.20 Chronic atrial fibrillation, unspecified; C90.00 Multiple myeloma not having achieved remission; N18.4 Chronic kidney disease, stage 4 (severe); N25.81 Secondary hyperparathyroidism of renal origin; N17.9 Acute kidney failure, unspecified; E44.0 Moderate protein-calorie malnutrition; I50.22 Chronic systolic (congestive) heart failure; I13.0 Hypertensive heart and chronic kidney disease with heart failure and stage 1 through stage 4 chronic kidney disease, or unspecified chronic kidney disease; E87.2 Acidosis; Z99.81 Dependence on supplemental oxygen; Z87.891 Personal history of nicotine dependence; I95.9 Hypotension, unspecified; F32.9 Major depressive disorder, single episode, unspecified; M79.2 Neuralgia and neuritis, unspecified; E87.5 Hyperkalemia; E88.09 Other disorders of plasma-protein metabolism, not elsewhere classified; E03.9 Hypothyroidism, unspecified; K12.31 Oral mucositis (ulcerative) due to antineoplastic therapy; E83.51 Hypocalcemia; E83.39 Other disorders of phosphorus metabolism; E86.1 Hypovolemia; E87.6 Hypokalemia
CPT/HCPCS: 36415; 36416; 36430; 36600; 51702; 71045; 76770; 80053; 80069; 81001; 82728; 82803; 83540; 83550; 83605; 83735; 83880; 84145; 84439; 84443; 84481; 84484; 85014; 85018; 85025; 86850; 86900; 86901; 86923; 87040; 93005; 93010; 94640; 94660; 94667; 94760; 94762; 96360; 96361; 97110; 97162; 97166; 97530; 97535; 99285-25; A9270; J0881; J1940; J1956; J2405; J2920; J3480; J7030; J7050; J7060; J7070; P9016